=== PATIENT | male | born 1955 | race Caucasian/White ===

== ENCOUNTER 2019-09-12 12:25 | Outpatient (CLI) | payer MEDICARE, MEDICAID, SELFPAY ==
--- NOTE | 2019-09-15 16:24 | WPDHOLTEREM ---
Holter/Event Monitor Holter/Event Monitor Date of procedure: 09/12/19 Procedure Type: 24 hour holter monitor Indications: Tachycardia Conclusion: 1. 24 hour holter monitor on 09/12/19. 2. Predominant rhythm is sinus rhythm. HR range 55-138 bpm; average HR 89 bpm. 3. There are 20 premature supraventricular complexes. There is one short run of atrial tachycardia, fastest at 126 bpm lasting 5 beats. 4. There is one premature ventricular complex. No ventricular tachycardia. 5. Patient reports heart pounding which demonstrate sinus rhythm at 110 bpm.
== END 2019-09-12 12:26 | disposition home or self-care (01) ==
LOC: ANHCARD 12:27
PROVIDERS: PCP Family Medicine; Visit Provider Family Medicine
DX: R00.0 Tachycardia, unspecified (principal)
CPT/HCPCS: 93225; 93226

== ENCOUNTER 2020-11-09 16:36 | Outpatient (CLI) | payer MEDICARE, MEDICAID, SELFPAY ==
--- NOTE | ~2020-11-09 | MR_ITS ---
EXAMINATION: MR lumbar spine wo con DATE: 11/09/2020 17:19 INDICATION: Lumbar spondylosis. TECHNIQUE: Magnetic resonance imaging (MRI) of the lumbar spine was performed without intravenous con trast. Sequences included sagittal T2-weighted FSE, sagittal T2-weighted FS FSE, sagittal T1-weighted FSE, and axial T2-weighted FSE. COMPARISON: Lumbar spine MRI 01/25/2017 FINDINGS: There is mild kyphosis of lumbar spine. There is 5 mm retrolisthesis of L5 on S1. There are Schmorl's nodes at all levels. There is moderately decreased disc height at L1-L2, L2-L3, and L3-L4 and severely decreased disc height at L4-L5 and L5-S1 with endplate remodeling. The distal spinal cor d signal intensity is normal. The conus medullaris is at T12-L1. The following disc levels are specif ically discussed: L1-L2: The disc is bulging. There is mild bilateral facet joint osteoarthritis. There is moderate manuel ateral neural foraminal stenosis. There is mild central canal stenosis. L2-L3: The disc is bulging and has an annular fissure. There is moderate right and mild left facet louis int osteoarthritis. There is moderate bilateral neural foraminal stenosis. There is mild central shade l stenosis. L3-L4: There is bulging and has an annular fissure. There is mild bilateral facet joint osteoarthriti s. There is mild bilateral neural foraminal stenosis. There is mild central canal stenosis. L4-L5: Disc is bulging and has an annular fissure. There is moderate bilateral facet joint osteoarthr itis. There is moderate bilateral neural foraminal stenosis. There is mild central canal stenosis wit h posterior decompression. L5-S1: The disc is bulging and has an annular fissure. There is severe bilateral facet joint osteoart hritis. There is moderate bilateral neural foraminal stenosis. There is mild central canal stenosis w ith posterior decompression. IMPRESSION: 1. Severe lumbar spondylosis, stable from 01/25/2017. Reviewed, dictated and finalized at location A.
== END 2020-11-09 16:37 | disposition home or self-care (01) ==
PROVIDERS: PCP Family Medicine; Visit Provider Family Medicine
DX: M43.06 Spondylolysis, lumbar region (principal); M48.07 Spinal stenosis, lumbosacral region
CPT/HCPCS: 72148

== ENCOUNTER 2022-05-31 12:36 | Outpatient (CLI) | payer MEDICARE, SELFPAY ==
[2022-05-31 12:51] LABS: Hematocrit 48.4 % (40.0-54.0); Hemoglobin 16.4 g/dL (14.0-18.0); Mean Corpuscular HGB Conc 33.9 g/dL (32.0-36.0); Mean Corpuscular Hemoglobin 32.1 pg (27.0-31.0); Mean Corpuscular Volume 94.7 fL (78.0-102.0); Mean Platelet Volume 11.1 fl (8.7-11.0); Platelet Count Result 187 K/mm3 (150-420); Red Blood Count 5.11 M/mm3 (4.70-6.10); Red Cell Distribution Width 12.5 % (11.6-14.4); White Blood Count 8.3 K/mm3 (4.8-10.8)
[2022-05-31 13:26] LABS: Anion Gap 7 mmol/L (8-16); Blood Urea Nitrogen 18 mg/dL (7-18); Calcium 9.1 mg/dL (8.5-10.1); Carbon Dioxide 31 mmol/L (21-32); Chloride 106 mmol/L (98-108); Cholesterol 161 mg/dL (0-200); Estimated Glomerular Filt Rate > 60; Glucose 109 mg/dL (70-99); HDL Direct 58 mg/dL (40-60); LDL Cholesterol Calculated 86 mg/dL (<130); Osmolality Calculated 300 mOsm/kg (285-295); Prostate Specific Antigen 6.5 ng/mL (< OR = 4.0); Sodium 144 mmol/L (136-145); Thyroid Stimulating Hormone 0.37 uIU/mL (0.36-3.74); Triglycerides 84 mg/dL (0-150)
== END 2022-05-31 12:37 | disposition home or self-care (01) ==
PROVIDERS: PCP Family Medicine; Visit Provider Family Medicine
DX: I10 Essential (primary) hypertension (principal); E78.2 Mixed hyperlipidemia; Z12.5 Encounter for screening for malignant neoplasm of prostate
CPT/HCPCS: 36415; 80048; 80061; 84153; 84443; 85027; G0103

== ENCOUNTER 2022-07-18 13:59 | Outpatient (CLI) | payer MEDICARE, SELFPAY ==
--- NOTE | ~2022-07-18 | MM_ITS ---
EXAMINATION: MM diagnostic shani LT w buddy HISTORY: Unspecified lump and pain in the left breast TECHNIQUE: Craniocaudal and mediolateral oblique 3-D tomosynthesis images of the left breast and medi olateral oblique tomosynthesis view of the right breast were performed. Synthetic 2-D images were gen erated. CAD analysis was submitted and interpreted. COMPARISON: Chest CT, 07/03/2018 BREAST PARENCHYMAL COMPOSITION: There are scattered areas of fibroglandular density. FINDINGS: There is flame-shaped subareolar density in both breasts, left greater than right. No suspi cious mass, calcification, or architectural distortion are identified. IMPRESSION: 1. Findings consistent with bilateral gynecomastia, left greater than right. BI-RADS Category 2: Benign finding(s). Reviewed, dictated and finalized at location A. 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
== END 2022-07-18 14:00 | disposition home or self-care (01) ==
LOC: ANHIMG 14:01
PROVIDERS: PCP Family Medicine; Visit Provider Family Medicine
DX: N63.0 Unspecified lump in unspecified breast (principal); R92.8 Other abnormal and inconclusive findings on diagnostic imaging of breast
CPT/HCPCS: 77061; 77065; G0279

== ENCOUNTER 2023-01-23 14:35 | Outpatient (CLI) | payer MEDICARE, SELFPAY ==
--- NOTE | ~2023-01-23 | XR_ITS ---
EXAMINATION: SACRUM/COCCYX DATE: 01/23/2023 15:21 INDICATION: Tail bone pain and low back pain after fall TECHNIQUE: Three views sacrum/coccyx FINDINGS: No prior studies for comparison. There is no displaced fracture of the sacrum. The coccyx demonstrates overall normal morphology with out acute angulation. IMPRESSION: 1. No acute displaced osseous abnormality of the sacrum. Suspicion for occult or nondisplaced sacral fracture can either be evaluated with CT or MRI. 2. Grossly normal morphology to the coccyx without acute angulation. However, due to the wide range of normal variation of the coccyx, acute injury would be best evaluated by clinical examination and patient's symptoms. Reviewed, dictated and finalized at location []
== END 2023-01-23 14:36 | disposition home or self-care (01) ==
LOC: ANHIMG 14:38
PROVIDERS: PCP Family Medicine; Visit Provider Family Medicine
DX: M53.3 Sacrococcygeal disorders, not elsewhere classified (principal)
CPT/HCPCS: 72220

== ENCOUNTER 2023-05-23 15:09 | Outpatient (CLI) | payer MEDICARE, SELFPAY ==
[2023-05-23 15:25] LABS: Basophils Absolute Auto 0.08 K/mm3 (0.00-0.10); Basophils Percent Auto 1.1 % (0.0-1.0); Eosinophils Absolute Auto 0.09 K/mm3 (0.02-0.50); Eosinophils Percent Auto 1.2 % (1.0-6.0); Hematocrit 45.7 % (37.0-46.0); Immature Granulocyte Absolute 0.02 K/mm3 (0.00-0.00); Immature Granulocyte Percent A 0.3 % (0.0-0.0); Lymphocytes Percent Auto 28.6 % (18.0-42.0); Mean Corpuscular HGB Conc 32.8 g/dL (32.0-36.0); Mean Corpuscular Hemoglobin 31.5 pg (27.0-31.0); Mean Platelet Volume 11.1 fl (8.7-11.0); Monocytes Absolute Auto 0.68 K/mm3 (0.10-0.90); Monocytes Percent Auto 9.3 % (2.0-11.0); Neutrophils Absolute Auto 4.4 K/mm3 (1.7-7.2); Neutrophils Percent Auto 59.5 % (50.0-70.0); Platelet Count Result 194 K/mm3 (150-420); Red Blood Count 4.76 M/mm3 (4.70-6.10); Red Cell Distribution Width 12.9 % (11.6-14.4); White Blood Count 7.3 K/mm3 (4.8-10.8)
[2023-05-23 15:37] LABS: Prothrombin Time 11.4 Seconds (9.50-12.10)
[2023-05-23 16:08] LABS: Alanine Aminotransferase 31 U/L (16-63); Albumin Level 3.7 g/dL (3.4-5.0); Alkaline Phosphatase 90 U/L (46-116); Anion Gap 7 mmol/L (8-16); Aspartate Amino Transferase 15 U/L (15-37); Bilirubin,Total 0.3 mg/dL (0.00-1.00); Blood Urea Nitrogen 19 mg/dL (7-18); Calcium 9.2 mg/dL (8.5-10.1); Carbon Dioxide 30 mmol/L (21-32); Chloride 104 mmol/L (98-108); Estimated Glomerular Filt Rate > 60; Glucose 89 mg/dL (70-99); Iron 68 ug/dL (65-175); Osmolality Calculated 293 mOsm/kg (285-295); Percent Iron Saturation 28 % (12-57); Potassium 4.1 mmol/L (3.5-5.1); Sodium 141 mmol/L (136-145); Total Protein 6.9 g/dL (6.4-8.2)
== END 2023-05-23 15:10 | disposition home or self-care (01) ==
LOC: CHSLAB 15:10
PROVIDERS: PCP Family Medicine; Visit Provider Family Medicine
DX: R00.0 Tachycardia, unspecified (principal); K62.5 Hemorrhage of anus and rectum; K59.00 Constipation, unspecified; I10 Essential (primary) hypertension; C61 Malignant neoplasm of prostate; R10.32 Left lower quadrant pain
CPT/HCPCS: 36415; 80053; 83540; 83550; 84443; 85025; 85610

== ENCOUNTER 2023-05-24 13:02 | Outpatient (CLI) | payer MEDICARE, SELFPAY ==
--- NOTE | ~2023-05-24 | CT_ITS ---
EXAMINATION: CT abd pelvis lumbar w con DATE: 05/24/2023 13:26 INDICATION: Chronic low back pain. Chronic abdominal pain. TECHNIQUE: Computed tomography (CT) of the abdomen and pelvis and lumbar spine was performed with 100 mL Omnipaque 350 intravenous contrast. Automated exposure control and iterative reconstruction techn ique were employed. The dose-length product was 496.98 mGy-cm. COMPARISON: CT abdomen and pelvis 03/26/2018, lumbar spine MRI 11/09/2020 FINDINGS: CT ABDOMEN AND PELVIS: The visualized portions of the lung bases demonstrate mild atelectasis in the right. No pleural effusion. The heart size is normal. No pericardial effusion. There are cysts in the liver measuring up to 4.5 cm. The gallbladder, spleen, pancreas, adrenal glands, and kidneys are nor mal. Aortic atherosclerosis is noted. The prostate is mildly enlarged. There is diverticulosis of the colon without evidence of diverticulitis. There are no dilated loops of bowel. The appendix is not v isualized. There are no pathologically enlarged lymph nodes. There is no free intraperitoneal fluid. CT LUMBAR SPINE: There is 3 mm retrolisthesis of L4 on L5 and 5 mm retrolisthesis of L5 on S1. There is mild chronic anterior wedging of L1 vertebral body. There is severely decreased disc height at L1- L2, moderately decreased disc height at L2-L3 and L3-L4, and severely decreased disc height at L4-L5 and L5-S1. The following disc levels are specifically discussed: L1-L2: The disc is bulging. There is mild bilateral facet joint osteoarthritis. There is moderate manuel ateral neural foraminal stenosis. There is mild central canal stenosis. L2-L3: The disc is bulging. There is mild bilateral facet joint osteoarthritis. There is moderate manuel ateral neural foraminal stenosis. There is mild central canal stenosis. L3-L4: The disc is bulging. There is moderate right and severe left facet joint osteoarthritis. There is mild bilateral neural foraminal stenosis. There is mild central canal stenosis. L4-L5: The disc is bulging. There is severe bilateral facet joint osteoarthritis. There is moderate b ilateral neural foraminal stenosis. There is mild central canal stenosis with posterior decompression . L5-S1: The disc is bulging. There is severe bilateral facet joint osteoarthritis. There is moderate b ilateral neural foraminal stenosis. There is mild central canal stenosis with posterior decompression . IMPRESSION: 1. Severe lumbar spondylosis, stable from 11/09/2020. Reviewed, dictated and finalized at location A.
== END 2023-05-24 13:03 | disposition home or self-care (01) ==
LOC: CHSIMG 13:03
PROVIDERS: PCP Family Medicine; Visit Provider Family Medicine
DX: C61 Malignant neoplasm of prostate (principal); I10 Essential (primary) hypertension; K59.00 Constipation, unspecified; K62.5 Hemorrhage of anus and rectum; R00.0 Tachycardia, unspecified; R10.32 Left lower quadrant pain; M43.06 Spondylolysis, lumbar region
CPT/HCPCS: 72132; 74177; Q9967

== ENCOUNTER 2023-06-07 10:22 | Day surgery (SDC) | payer MEDICARE, SELFPAY ==
[2023-05-28 13:39] VITALS: BMI 23.8
[2023-06-07 12:17] VITALS: BP 176/89; PULSE 88; RESP 16; TEMP 37.1; O2SAT 96; BMI 23.8
[2023-06-07] MEDS: LACTATED RINGERS 1,000 ML 150 ML IV CONT (12:23)
--- NOTE | 2023-06-07 12:29 | WPDANESEPPF ---
Anes - Initial Pre Proc Eval Procedure: Operation Date: 06/07/23 14:00 Proposed Procedures p Colonoscopy - Todd Stanford MD Date/Time: 06/07/23 12:29 Surgeon: Todd Stanford MD Pre Op Diagnosis: Screening for malignant neoplasm of colon, Patient Data Age: 67 Gender: M Height: 1.85 m Weight: 81.8 kg Last Vital Signs Temp 37.1 C 06/07/23 12:17 Pulse 88 06/07/23 12:17 Resp 16 06/07/23 12:17 BP 176/89 H 06/07/23 12:17 Pulse Ox 96 06/07/23 12:17 O2 Del Method Room Air 06/07/23 12:17 Allergies Allergy/AdvReac Type Severity Reaction Status Date / Time aspirin Allergy Mild Nausea Verified 06/07/23 12:03 NSAIDS (Non-Steroidal Allergy Mild Nausea Verified 06/07/23 12:03 Anti-Inflamma Home Medications Medication Instructions Recorded Confirmed Type lisinopril 20 mg tablet 20 mg PO DAILY #90 tabs 07/28/22 05/28/23 Rx rosuvastatin 20 mg tablet 20 mg PO QHS #90 tabs 07/28/22 06/07/23 Rx mirabegron 25 mg tablet,extended See Rx Instructions .Route .COMPLEX 09/28/22 05/22/23 History release 24 hr (Myrbetriq) solifenacin 10 mg tablet 10 mg PO .QD 09/28/22 05/28/23 History albuterol sulfate 90 mcg/actuation 1 puff inhalation Q4H PRN 11/24/22 05/28/23 Rx aerosol inhaler (ProAir HFA) shortness of breath or wheezing #18 grams duloxetine 60 mg capsule,delayed 60 mg PO DAILY #90 caps 04/01/23 05/28/23 Rx release esomeprazole magnesium 40 mg See Rx Instructions .Route 04/24/23 05/28/23 Rx capsule,delayed release .COMPLEX #90 caps trazodone 100 mg tablet See Rx Instructions .Route 04/29/23 05/28/23 Rx .COMPLEX #270 tabs oxycodone 15 mg tablet 15 mg PO Q8H PRN LDDD #90 tabs 05/10/23 06/07/23 Rx tamsulosin 0.4 mg capsule 0.4 mg PO DAILY 05/22/23 05/28/23 History polyethylene glycol 3350 17 17 g PO DAILY #510 grams 06/07/23 Rx gram/dose oral powder (Miralax) Patient hx anesthesia problems: none Family hx anesthesia problems: none Results Review: All pre-operative results and documents have been reviewed as part of the pre-operative evaluation. [facility] Past Medical History Medical History Abnormal MRI, lumbar spine Asthma Bladder spasm BMI 24.0-24.9, adult BMI 25.0-25.9,adult BMI 26.0-26.9,adult BMI 27.0-27.9,adult BMI 28.0-28.9,adult BPH (benign prostatic hyperplasia) Breast mass in male Changing skin lesion Coccyx pain Colon cancer screening Colon, diverticulosis Colon, diverticulosis Constipation COPD (chronic obstructive pulmonary disease) Cough Degenerative lumbar disc Depression Diverticulosis Elevated PSA GERD (gastroesophageal reflux disease) Hemorrhoids Hyperlipidemia Hypertension Irregular heart beat Left lower quadrant abdominal pain Lumbar spondylolysis Mixed hyperlipidemia Nasal congestion Prostate cancer Rectal bleeding Skin lesion of chest wall Tachycardia TMJ (temporomandibular joint disorder) Tobacco dependence due to cigarettes (Unknown) Wheeze Surgical History Surgical History H/O knee surgery History of appendectomy History of back surgery History of eye surgery History of tonsillectomy Hx of prostate biopsy Family History Family History Sibling Family history of mental disorder Mother Family history of chronic obstructive pulmonary disease Father No problems noted. Other Cerebrovascular accident Diabetes mellitus Family history of allergic disorder Heart disease Hypertension Social History Social History Years smoked: 48 Smoking status: Current every day smoker Tobacco type: cigarettes Alcohol intake: former Substance use: never Substance use type: does not use Living arrangements: with family Occupation/Education: other Additional occupation/educat
--- NOTE | 2023-06-07 12:56 | PM.HPGS ---
History of Present Illness History of Present Illness Consent: Risks, benefits, and alternatives have been discussed and questions answered. Patient agrees to proceed with procedure. Chief complaint: Screening for malignant neoplasm of colon, Narrative: Avery Jurado Sr. is a 67 year old male with intermittent pain in llq, ct scan negative, also noted blood in stools. Last colonoscopy 2019 with diverticulosis and small polyp Review of Systems Constitutional: Constitutional: Denies headache(s) and Denies weakness Eyes: Eyes: Denies blurry vision ENT: Reports Normal hearing present, Denies headache(s) and Denies neck pain Cardiovascular: Cardiovascular: Denies chest pain and Denies dyspnea Respiratory: Respiratory: Denies dyspnea Gastrointestinal: Gastrointestinal: Reports no additional gastrointestinal complaints Genitourinary: Genitourinary: Denies dysuria Musculoskeletal: Musculoskeletal: Denies neck pain Integumentary/Breasts: Skin/Breast: Denies dry skin Neurologic: Reports Normal hearing present, Denies headache(s) and Denies weakness Psychiatric: Psychiatric: Denies anxiety Endocrine: Endocrine: Denies change in body appearance Hematologic/Lymphatic: Hematologic/Lymphatic: Denies easy bleeding Allergic/Immunologic: Allergic/Immunologic: Denies urticaria PMFSH Past Medical History Medical History Abnormal MRI, lumbar spine Asthma Bladder spasm BMI 24.0-24.9, adult BMI 25.0-25.9,adult BMI 26.0-26.9,adult BMI 27.0-27.9,adult BMI 28.0-28.9,adult BPH (benign prostatic hyperplasia) Breast mass in male Changing skin lesion Coccyx pain Colon cancer screening Colon, diverticulosis Colon, diverticulosis Constipation COPD (chronic obstructive pulmonary disease) Cough Degenerative lumbar disc Depression Diverticulosis Elevated PSA GERD (gastroesophageal reflux disease) Hemorrhoids Hyperlipidemia Hypertension Irregular heart beat Left lower quadrant abdominal pain Lumbar spondylolysis Mixed hyperlipidemia Nasal congestion Prostate cancer Rectal bleeding Skin lesion of chest wall Tachycardia TMJ (temporomandibular joint disorder) Tobacco dependence due to cigarettes (Unknown) Wheeze Surgical History Surgical History H/O knee surgery History of appendectomy History of back surgery History of eye surgery History of tonsillectomy Hx of prostate biopsy Family History Family History Sibling Family history of mental disorder Mother Family history of chronic obstructive pulmonary disease Father No problems noted. Other Cerebrovascular accident Diabetes mellitus Family history of allergic disorder Heart disease Hypertension Social History Social History Years smoked: 48 Smoking status: Current every day smoker Tobacco type: cigarettes Alcohol intake: former Substance use: never Substance use type: does not use Living arrangements: with family Occupation/Education: other Additional occupation/education comments: Disabled Spiritual care concerns: No Meds Home Medications and Allergies Home Medications Medication Instructions Recorded Confirmed Type lisinopril 20 mg tablet 20 mg PO DAILY #90 tabs 07/28/22 05/28/23 Rx rosuvastatin 20 mg tablet 20 mg PO QHS #90 tabs 07/28/22 06/07/23 Rx mirabegron 25 mg tablet,extended See Rx Instructions .Route .COMPLEX 09/28/22 05/22/23 History release 24 hr (Myrbetriq) solifenacin 10 mg tablet 10 mg PO .QD 09/28/22 05/28/23 History albuterol sulfate 90 mcg/actuation 1 puff inhalation Q4H PRN 11/24/22 05/28/23 Rx aerosol inhaler (ProAir HFA) shortness of breath or wheezing #18 grams duloxetine 60 mg capsule,delayed 60 mg PO DAILY #90 caps 04/01/23 05/28/23 Rx release esomeprazole dawsone
[2023-06-07 13:35] VITALS: BP 144/82; PULSE 70; RESP 16; O2SAT 99
--- NOTE | 2023-06-07 13:39 | WPDANESPN ---
Anes - Prog Note Post-Op Date/Time: 06/07/23 13:39 Cardiovascular status: normal Respiratory status: normal Airway patency: baseline Mental status: baseline Post-Op hydration status: normal Vital Signs: Last Vital Signs Temp 37.1 C 06/07/23 12:17 Pulse 88 06/07/23 12:17 Resp 16 06/07/23 12:17 BP 176/89 H 06/07/23 12:17 Pulse Ox 96 06/07/23 12:17 O2 Del Method Room Air 06/07/23 12:17 Pain Score (VAS): 0/10 I/O: Intake & Output 06/06/23 06/07/23 06/07/23 23:59 07:59 15:59 Intake Total 700 Balance 700 Patient Feedback: Patient satisfied with anesthetic care.
[2023-06-07 13:45] VITALS: BP 146/84; PULSE 68; RESP 18; O2SAT 99
[2023-06-07 13:55] VITALS: BP 146/97; PULSE 74; RESP 18; O2SAT 96
== END 2023-06-07 14:16 | disposition home or self-care (01) ==
PROVIDERS: PCP Family Medicine; Visit Provider Internal Medicine Gastroenterology
PROC: 0DJD8ZZ Inspection of Lower Intestinal Tract, Via Natural or Artificial Opening Endoscopic (ICD-10-PCS; CPT 45378; principal; 2023-06-07 14:00)
DX: K92.1 Melena (principal); D37.8 Neoplasm of uncertain behavior of other specified digestive organs; K57.30 Diverticulosis of large intestine without perforation or abscess without bleeding
CPT/HCPCS: 45385

== ENCOUNTER 2023-06-07 11:44 | Outpatient (NON) | payer MEDICARE, SELFPAY | END 2023-06-07 11:45 | disposition home or self-care (01) | LOC: ANHLAB 06-08 11:46 | PROVIDERS: PCP Family Medicine; Visit Provider Internal Medicine Gastroenterology | DX: K62.5 Hemorrhage of anus and rectum (principal); R85.613 High grade squamous intraepithelial lesion on cytologic smear of anus (HGSIL) | CPT/HCPCS: 88305 ==

== ENCOUNTER 2024-01-15 15:05 | Outpatient (CLI) | payer MEDICARE, SELFPAY ==
--- NOTE | ~2024-01-15 | XR_ITS ---
XR cervical spine min 6V 01/15/2024 15:45 Indication: Numbness. Neck pain. Procedure: 7 view cervical spine Comparison: 09/01/2008 Findings: There is disc narrowing at C4-5, C5-6 and C6-7. There is multilevel uncinate and facet hype rtrophy. Lung apices are normal. Odontoid process is normal. Lateral masses normally aligned. No frac ture or traumatic malalignment. Impression: 1: Moderate-severe cervical spondylosis. Reviewed, dictated and finalized at location B. Impression: 1: Moderate-severe cervical spondylosis.
== END 2024-01-15 15:06 | disposition home or self-care (01) ==
PROVIDERS: PCP Family Medicine; Visit Provider Family Medicine
DX: M48.02 Spinal stenosis, cervical region (principal); M43.02 Spondylolysis, cervical region
CPT/HCPCS: 72052

== ENCOUNTER 2024-01-23 10:59 | Outpatient (CLI) | payer MEDICARE, SELFPAY ==
--- NOTE | ~2024-01-23 | MR_ITS ---
MRI of the cervical spine Clinical History: Spinal stenosis Technique: Axial T2-weighted and gradient images, and sagittal T1-weighted, T2-weighted, and STIR jason ges were acquired. Findings: No fracture seen. There is minimal grade 1 retrolisthesis of C3 over C4. No suspicious bone marrow signal abnormality seen. At C2-C3, there is minimal disc osteophyte convex. There is minimal canal stenosis without alka cord compression. There is probable minimal bilateral neural foraminal narrowing with mild facet arthropa thy bilaterally. At C3-C4, there is disc osteophyte complex, most prominent at the left paracentral to left foraminal region. There is moderate canal stenosis and mild cord compression. There is severe left neural trev inal compromise. There is moderate to severe right neural foraminal compromise. At C4-C5, there is mild disc osteophyte complex. There is mild canal stenosis without alka cord comp ression. There is advanced bilateral neural foraminal narrowing with bilateral facet arthropathy. At C5-C6, there is minimal disc bulge. There is no alka canal stenosis or cord compression. There is bilateral neural foraminal narrowing, right worse than left, with bilateral facet arthropathy. At C6-C7, there is minimal disc bulge. No alka canal stenosis or cord compression. There is bilatera l neural foraminal narrowing with bilateral facet arthropathy. No abnormal signal seen in the spinal cord itself. Paravertebral soft tissues are unremarkable. Impression: Severe degenerative spondylosis, as detailed above, worst at C3-C4. Reviewed, dictated and finalized at [facility]. Impression: Severe degenerative spondylosis, as detailed above, worst at C3-C4.
== END 2024-01-23 11:00 | disposition home or self-care (01) ==
LOC: ANHIMG 10:59
PROVIDERS: PCP Family Medicine; Visit Provider Family Medicine
DX: M48.02 Spinal stenosis, cervical region (principal); M47.892 Other spondylosis, cervical region
CPT/HCPCS: 72141

== ENCOUNTER 2024-07-23 12:22 | Outpatient (CLI) | payer MEDICARE, SELFPAY ==
--- NOTE | 2024-07-23 14:30 | NEURO_ITS ---
Impression: # Complains of numbness in lower extremities/feet. ? # Neuropathy in the lower extremities. ? # Neurogenic needle/EMG exam. ? # Clinical correlation recommended. Nerve Conduction Studies Anti Sensory Summary Table ?Stim Site NR Peak (ms) P-T Amp (?V) Site1 Site2 Delta-P (ms) Dist (cm) Miguel Angel (m/s) Left Sup Fibular Anti Sensory (Ant Lat Mall) 14 cm ? 3.6 8.0 14 cm Ant Lat Mall 3.6 16.0 44 Right Sup Fibular Anti Sensory (Ant Lat Mall) 14 cm ? 4.5 13.6 14 cm Ant Lat Mall 4.5 16.0 36 Left Sural Anti Sensory (Lat Mall) Calf ? 3.9 15.1 Calf Lat Mall 3.9 16.0 41 Right Sural Anti Sensory (Lat Mall) Calf ? 4.1 10.1 Calf Lat Mall 4.1 16.0 39 Motor Summary Table ?Stim Site NR Onset (ms) O-P Amp (mV) Site1 Site2 Delta-0 (ms) Dist (cm) Miguel Angel (m/s) Left Peroneal Motor (Vastus Med) Ankle ? 4.9 4.0 Popit Ankle 11.1 44.0 40 Popit ? 16.0 1.8 Right Peroneal Motor (Vastus Med) Ankle ? 4.3 2.0 Popit Ankle 10.6 42.0 40 Popit ? 14.9 1.6 Left Tibial Motor (Abd Kerns Brev) Ankle ? 4.7 5.1 Knee Ankle 10.9 45.0 41 Knee ? 15.6 3.9 Right Tibial Motor (Abd Kerns Brev) Ankle ? 5.0 3.2 Knee Ankle 11.0 45.0 41 Knee ? 16.0 2.9 F Wave Studies ?NR F-Lat (ms) L-R F-Lat (ms) Left Peroneal (Mrkrs) (EDB) ? 59.47 0.60 Right Peroneal (Mrkrs) (EDB) ? 58.87 0.60 Left Tibial (Mrkrs) (Abd Hallucis) ? 59.63 0.43 Right Tibial (Mrkrs) (Abd Hallucis) ? 60.06 0.43 EMG ?Side Muscle Nerve Root Ins Act Fibs Amp Dur Recrt Comment Right AntTibialis Dp Br Fibular L4-5 Nml Nml Nml Nml Nml Right Gastroc Tibial S1-2 Nml Nml Nml Nml Nml Right Fibularis Long Sup Br Fibular L5-S1 Nml Nml Nml Nml Nml Right Flex Dig Long Tibial L5-S2 Nml Nml Nml >12ms +1 Right Ext Dig Brev Dp Br Fibular L5, S1 Nml Nml Nml >12ms +1 Right QuadratusFem QuadFemoris L4-5, S1 Nml Nml Nml Nml Nml Left AntTibialis Dp Br Fibular L4-5 Nml Nml Nml Nml Nml Left Gastroc Tibial S1-2 Nml Nml Nml Nml Nml Left Fibularis Long Sup Br Fibular L5-S1 Nml Nml Nml Nml Nml Left Flex Dig Long Tibial L5-S2 Nml Nml Nml >12ms +1 Left Ext Dig Brev Dp Br Fibular L5, S1 Nml Nml Nml >12ms +1 Left QuadratusFem QuadFemoris L4-5, S1 Nml Nml Nml Nml Nml MTDD
== END 2024-07-23 12:23 | disposition home or self-care (01) ==
LOC: ANHNEURO 12:25
PROVIDERS: PCP Family Medicine; Visit Provider Family Medicine
DX: R20.0 Anesthesia of skin (principal); R20.2 Paresthesia of skin; G62.9 Polyneuropathy, unspecified
CPT/HCPCS: 95886; 95910

== ENCOUNTER 2024-08-27 13:00 | Outpatient (RCR) | payer MEDICARE, MEDICAID, SELFPAY ==
--- NOTE | 2024-08-27 14:02 | OPREHPOC ---
Outpatient Therapy Plan of Care This is a Multidisciplinary Plan of Care that may contain components documented by all disciplines (PT, OT, and ST.) PT Problem 1 PT Problem #1 Knowledge Deficit PT Goal 1 Goal / Goal Update 1. independent and compliant with HEP Target Visit 6 PT Problem 2 PT Problem #2 Pain PT Goal 1 Goal / Goal Update 1. patient to report 50% or better reduction in neck and UE pain/symptoms Target Visit 12 PT Problem 3 PT Problem #3 Impaired Range of Motion PT Goal 1 Goal / Goal Update 1. 75 degrees or better bilat active rotation 2. 40 degrees or better bilat active side bending Target Visit 12 PT Problem 4 PT Problem #4 Impaired Strength PT Goal 1 Goal / Goal Update 1. improve bilateral shoulder flex and abd to 4+/5 or better 2. patient to display 4/5 or better deep neck flexor strength 3. chin tuck hold with head flat on pillow Target Visit 12 PT Problem 5 PT Problem #5 Impaired Functional Mobility PT Goal 1 Goal / Goal Update 1. patient to report 50% reduction in UE radicular symptoms 2. patient to read 1 chapter a day without increased pain/symptoms 3. NDI to display 30% or less functional deficits Target Visit 12
--- NOTE | 2024-08-27 14:02 | PTOPEVAL1 ---
Assessment and note entered by JT File, PT Evaluation Information Assessment Status Evaluation ICD-10 Condition Codes (PT) Radiculopathy, cervical M54.13 Onset 08/08/24 Subjective Information patient reports he is in therapy for neck pain. he reports he has been getting some numbness in his arms. he reports he also had a spell back in May/June when his arms went numb and stayed numb for 4-5 weeks. he reports he did have an MRI of the neck at [facility]. he reports there was some talk about fusing his neck, but he is here to try and avoid that. he reports the pain goes down both arms, but the R arm is worse. he reports the numbness goes to all fingers . he reports he as increased symptoms when looking up with his head or holding his head to the L or R. he reports he struggles to be able to get his chin to his chest. he reports he also does get headaches every day. he reports he takes oxycodone , but reports he has been taking this for his back for 7-8 years, and before that he was on tramadol and fentanyl for a long time. patient reports he would like to have less pain or no pain, less or no numbness, and be able to read a book. he reports he gets up throughout the night due to prostate cancer. he is currently receiving treatment for prostate cancer. he reports no neck surgery history and no numbness/tingling to the face Reported Pain Level Pain Score 4: Self Report Assessment PT Clinical Summary mr. adan is a 68 yo man who presents to skilled PT services for evaluation and treatment of cervical radiculopathy to the bilateral UE's, but worse to the R UE. he presents with complaints of numbness, burning, tingling to the bilateral UE's (whole hand and all fingers), inability to read a book due to his pain, and inability to sit and look up to talk to people due to pain. he displays signs and symptoms consistent with severe cervical spondylosis. he would benefit from continued skilled PT to address his objective/ functional deficits to allow him to enjoy his life with less pain/radicular symptoms, sleep better, and allow him to read a book. Plan of Care Interventions Manual Therapy,Mechanical Traction,Patient/ Caregiver Education,Therapeutic Activities, Therapeutic Exercise PT Services Indicated Yes Treatment Frequency and 3x weekly for 12 visits Duration These treatments will address the objective and functional deficits as defined above. The patient will be advanced safely and appropriately in order for the patient to progress towards his/her prior level of function. Additional exercises will be introduced and as well as a comprehensive home exercise program upon discharge, if needed, ?to ensure carryover of functional gains achieved in the clinic. This treatment plan has been reviewed and agreement upon by the patient.
--- NOTE | 2024-09-25 14:47 | PCPTNOTE ---
09/25/24: Pt cancelled appointment after note was already opened. Pt not treated. -Dara Teixeira, PT
== END 2024-11-25 23:59 | disposition home or self-care (01) ==
LOC: CHSPT 13:00
PROVIDERS: Visit Provider Neurological Surgery
DX: M54.12 Radiculopathy, cervical region (principal)
CPT/HCPCS: 97012; 97014; 97110; 97161; G0283

== ENCOUNTER 2024-10-06 14:42 | Outpatient (CLI) | payer MEDICARE, SELFPAY ==
--- NOTE | ~2024-10-06 | CT_ITS ---
EXAMINATION: CT lung screening DATE: 10/06/2024 15:39 INDICATION: former smoker TECHNIQUE: Computed tomography (CT) of the chest was performed without intravenous contrast. Addition al 3D reconstructions utilizing coronal maximum intensity projection (MIP) were performed. Automated exposure control and iterative reconstruction technique were employed. The dose-length product was 12 4.60 mGy-cm. COMPARISON: 07/03/2018 FINDINGS: Mild emphysema. A couple unchanged <4 mm nodules in the basilar left lower lobe which appears likely but not definitively calcified and which are unchanged from 06/02/2018 consistent with old granulomat ous disease. No other new or enlarging pulmonary nodules, pneumonia, pulmonary edema or pleural effus ion. Heart size is normal. Small amount of atherosclerotic coronary artery calcific location. No edgardo cardial effusion. Thoracic aorta is normal in caliber. No pathologically enlarged thoracic lymphadeno sebastien. Bilateral gynecomastia. Again seen are few low-attenuation hepatic cysts the largest in the ca udal right hepatic lobe measuring 5.2 cm in maximal diameter. Mild thoracic spondylosis with chronic mild anterior wedging at T7 and T8. IMPRESSION: 1. . Lung-RADS category 2: Benign appearance or behavior. Continue annual screening with noncontrast low-dose chest CT in 12 months. Reviewed, dictated and finalized at location B. NE BANKING SPECIALIST IMPRESSION: 1. . Lung-RADS category 2: Benign appearance or behavior. Continue annual scree sam with noncontrast low-dose chest CT in 12 months.
--- NOTE | ~2024-10-06 | XR_ITS ---
EXAMINATION: XR thoracolumbar DATE: 10/06/2024 15:39 INDICATION: Spondylolysis, lumbar region. TECHNIQUE: 2 views of the thoracolumbar spine were obtained. COMPARISON: Chest CT 10/06/2024 FINDINGS: There is 8 degrees levocurvature of thoracic spine. There is mild chronic anterior wedging of multiple vertebral bodies. There is mildly decreased disc height at multiple levels in mid thoraci c spine. There is moderately decreased disc height at L1-L2. IMPRESSION: 1. Mild thoracic spondylosis and moderate lumbar spondylosis. Reviewed, dictated and finalized at location A. TE PILOT OPERATOR
--- NOTE | 2024-10-06 14:51 | ECG_ITS ---
Test Date: 2024-10-06 15:10:01 Measurements Intervals Leonard Rate: 80 P: 81 NC: 155 QRS: 76 QRSD: 94 T: 69 QT: 357 QTc: 412 Interpretive Statements SINUS RHYTHM NORMAL ECG No previous ECG available for comparison Electronically Signed On 10-06-2024 15:14:38 GUTTER INSTALLER by Timothy Edmonds D.O.
--- OUTSIDE RECORDS SUMMARY | 2024-10-06 17:09 | XMS_ITS | Patient Health Summary ---
Author Organization [facility] Address [address] [place] [address] Care Team Providers Care Engineering Geologist Name Role Phone Bobby Shepherd MD Primary Care Provider [phone] Note from [facility],non-owned Affiliates and Associated Physician Practices is amultiple site organization consisting of ambulatory clinics and hospital sitesin [place], [place], [place] and [place]. This disclosure is being madepursuant to the Care Everywhere program and may not contain all information available regarding this patient. Last updated 18.[facility] Social History Tobacco Use Types Packs/Day Years Used Date Smoking Tobacco: Never Assessed Sex and Gender Information Value Date Recorded Sex Assigned at Not on file Gender Identity Not on file Sexual Orientation Not on file Procedures * DERMATOPATHOLOGY(Performed 09/16/2019) * DERMATOPATHOLOGY(Performed 10/16/2017) Results * DERMATOPATHOLOGY (09/16/2019 12:00 AM AUTOMATION MANAGER) Only the most recent of2 resultswithin the time period is included. Case Report Dermatopathology Report Case: [id number] Authorizing Provider: Bobby Shepherd MD Collected: 09/16/2019 12:00 AM Ordering Location: [facility] DermPath Lab Received: 09/17/2019 01:23 PM Pathologist: Phillip Godinez MD Specimen: Skin, left abdomen 0 5:01 PM AUTOMATION MANAGER DERMATOPATHOLOGY LABORATORY Final Diagnosis Specimen A. SKIN, left abdomen: BENIGN VERRUCOUS KERATOSIS WITH OVERLYING CHANGES OF PRURIGO NODULARIS (L82.1) NOT PRESENT AT SAMPLED MARGIN 0 5:01 PM [facility] DERMATOPATHOLOGY LABORATORY Clinical History Changing lesion. Check margins. 0 5:01 PM [facility] DERMATOPATHOLOGY LABORATORY Gross Description Specimen A: Received is one formalin filled container labeled with the patients name and designated left abdomen. The specimen consists of a [id number] excision of skin. The margin is inked green. The specimen is bisected lengthwise and submitted in 1 cassette. Jar 0. 0 5:01 PM [facility] DERMATOPATHOLOGY LABORATORY Microscopic Description Specimen A. SKIN, left abdomen: Sections show hyperkeratosis, papillomatosis, hypergranulosis, and acanthosis. These histological findings can be seen in a verruca vulgaris or a seborrheic keratosis. There is a dome-shaped portion of skin with psoriasiform epidermal hyperplasia, compact hyperkeratosis, and fibrosis of the papillary dermis associated with a superficial perivascular lymphohistiocytic infiltrate. This lesion is not present at the sampled margin of the specimen. 0 5:01 PM [facility] DERMATOPATHOLOGY LABORATORY Disclaimer An external and internal positive and negative controls are appropriate for the histochemical, immunohistochemical and immunofluorescence stain(s) in this case (if any), except where stated explicitly. The performance characteristics of the stain(s) cited in this report were developed and its performance characteristic determined by the Dermatopathology Laboratory at [facility], directed by Dr. Sarah Godinez. These tests need not be, and therefore are not, approved by the [place] Food and Drug Administration. The tests are used for clinical purposes. Billing Codes Specimen Charges Stain Charges 63392 1 0 5:01 PM [facility] DERMATOPATHOLOGY LABORATORY Embedded Images 0 5:01 PM [facility] DERMATOPATHOLOGY LABORATORY Pathology/Cytolog y TISSUE SPECIMEN FROM SKIN / Unknown 09/16/2019 09/17/2019 1:23 PM [facility] Bobby Shepherd MD LAB - PATHOLOGY/CYTO LOGY ORDERABLES DERMATOPATHOLOGY LABORATORY [facility] - Department of Dermatology [address] Lab [address] [phone] Care Teams Engineering Geologist Relationship Specialty Start Date End Date Bobby Shepherd MD [address] [place] [address] PCP - General 09/17/19
--- OUTSIDE RECORDS SUMMARY | 2024-10-06 17:09 | XMS_ITS | Referral Summary ---
Author Organization [facility] Address [address] [place] [address] Care Team Providers Care Solution Mixer Name Role Phone Bobby Shepherd MD Primary Care Provider [phone] Kwabena Yost MD Unavailable [phone] Jesus Roque MD Unavailable [phone] Allergies Active Allergy Reactions Criticality Noted Date Comments Aspirin Stomach upset Low 06/26/2023 Medications oxyCODONE (ROXICODONE) 15 mg immediate release tabletIndications :Pain Take 1 tablet (15 mg total) by mouth 3 (three) times a day 3 Active albuterol HFA (PROVENTIL HFA,VENTOLIN HFA,PROAIR HFA) 90 mcg/actuation inhalerIndication s:Acute Asthma Attack Inhale 2 puffs every 6 (six) hours as needed 3 Active lisinopriL (PRINIVIL,ZESTRIL ) 20 mg tabletIndications :hypertension Take 1 tablet (20 mg total) by mouth every morning Active rosuvastatin (CRESTOR) 20 mg tabletIndications :hyperlipidemia Take 1 tablet (20 mg total) by mouth nightly Active esomeprazole DR (NexIUM) 40 mg capsuleIndication s:gerd Take 1 capsule (40 mg total) by mouth daily before breakfast Active DULoxetine DR (CYMBALTA) 60 mg capsuleIndication s:Anxiety with Depression Take 1 capsule (60 mg total) by mouth every morning 3 Active traZODone (DESYREL) 100 mg tabletIndications :insomnia associated with depression Take 1 tablet (100 mg total) by mouth nightly Active Myrbetriq 50 mg tablet extended release 24 hrIndications:Krishan dder Hyperactivity Take 1 tablet (50 mg total) by mouth nightly at bedtime. 3 Active solifenacin (VESIcare) 10 mg tabletIndications :Bladder Hyperactivity Take 1 tablet (10 mg total) by mouth nightly Active tamsulosin (FLOMAX) 0.4 mg extended release capsuleIndication s:benign prostatic hyperplasia with lower urinary tract sx Take 1 capsule (0.4 mg total) by mouth nightly Active senna (SENOKOT) 8.6 mg tabletIndications :constipation Take 1 tablet by mouth every morning Active iron bisgly,ps-FA-B-C# 12-succ 65 mg-65 mg -1,000 mcg (24) tabletIndications :Folate Deficiency Take 1 tablet by mouth every morning Active sodium chloride 3 % mistIndications:D ry Nose,Nasal Congestion Administer 1 spray into affected nostril(s) every morning Active oxyCODONE (ROXICODONE) 5 mg immediate release tabletIndications :Pain Take 1 tablet (5 mg total) by mouth every 4 (four) hours as needed for pain for up to 5 doses 5 tablet 3 Active Additional Information Patient not taking.Reported on 08/21/2023 Active Problems Problem Noted Date Diagnosed Date Chronic idiopathic constipation 11/27/2023 AIN III (anal intraepithelial neoplasia III) Social History Tobacco Use Types Packs/Day Years Used Date Smoking Tobacco: Every Day Cigarettes 0.8 50.1 Started: 1972 Smokeless Tobacco: Never Tobacco Cessation:Ready to Q uit: Not Asked; Counseling Given: Not Answered AUDIT-C Answer Date Recorded Q1: How often do you have a drink containing alc ohol? Never 07/27/2023 Average Number of Drinks Not on file 023 Frequency of Binge Drinking Not on file 07/13 Personal Safety Answer Date Recorded Have you ever been in or are you currently in a harmful physical or emotional relationship or is someone making you feel afraid or unsafe? Denies 07/27/2023 Sex and Gender Information Value Date Recorded Sex Assigned at Not on file Legal Sex Male 8:06 PM WHEEL AND AXLE INSPECTOR Gender Identity Male 06/19/2023 9:21 AM WHEEL AND AXLE INSPECTOR Sexual Orientation Straight 06/19/2023 9: 21 AM WHEEL AND AXLE INSPECTOR Last Filed Vital Signs Vital Sign Reading Time Taken Comments Blood Pressure 155/81 04/29/2024 10:47 AM CDT Pulse 85 04/29/2024 10:47 AM CDT Temperature 36.1 C (96.9 F) 04/29/2024 10:47 AM CDT Respiratory Rate 15 07/27/2023 8:05 AM WHEEL AND AXLE INSPECTOR Oxygen Saturation 92% 04/29/2024 10:47 AM CDT Inhaled Oxygen Concentration - - Weight 83.9 kg (185 lb) 04/29/2024 10:47 AM CDT Height 182.9 cm (6') 04/29/2024 10:47 AM CDT Body Mass Index 25.09 04/29/2024 10:47 AM CDT Plan of Treatment Not on file Medical Devices Implanted Type Area Printed Circuit Board Designer Device Identifier Shelf Expiration Date Model / Serial / Lot Rt Wrist Pins Wrist Rt Hand Pins Hand Insurance MEDICARE [facility] Address: [address] [address] [place] [address] [employer]ICARE [facility] Address: [facility] [address] [place] [address] Care Teams Solution Mixer Relationship Specialty Start Date End Date Bobby Shepherd MD PCP - General Family Medicine 06/08/23 Kwabena Yost MD [address] [facility] [address] [place] [address] Referring Physician Gastroenterology 06/26/23 Jesus Roque MD [address] [facility] [id number] [place] [address] Surgeon Colon and Rectal Surgery 06/26/23
--- OUTSIDE RECORDS SUMMARY | 2024-10-06 17:09 | XMS_ITS | Clinical Summary ---
Author Organization [facility] Address [address] [place] [address] Care Team Providers Care Laundry Machine Tender Name Role Phone Bobby Shepherd MD Primary Care Provider [phone] Kwabena Yost MD Unavailable [phone] Jesus Roque MD Unavailable [phone] Allergies Active Allergy Reactions Criticality Noted Date [...] 11/27/2023 AIN III (anal intraepithelial neoplasia III) Surgical History Surgery Date Site/Laterality Comments BACK SURGERY APPENDECTOMY 08/13/1995 - 08/12/1996 WRIST SURGERY Right pins placed KNEE SURGERY Left arthroscopy HAND SURGERY Right fracture...pins in place COLONOSCOPY EXAMINATION UNDER ANESTHESIA 07/27/2023 Examination under anesthesia with excision of anal condyloma Medical History Medical History Date Comments Hypertension COPD (chronic obstructive pulmonary disease) (HC C) Diverticulitis Prostate cancer (HCC) GERD (gastroesophageal reflux disease) Family History Medical History Relation Name Comments Lung cancer Father COPD Mother Anesthesia problems Neg Hx Relation Name Status Comments Father Mother Social History Tobacco Use Types Packs/Day Years [...] on file Legal Sex Male 8:06 PM WHITE WASHER PILER Gender Identity Male 06/19/2023 9:21 AM WHITE WASHER PILER Sexual Orientation Straight 06/19/2023 9: 21 AM WHITE WASHER PILER Obstetrics History Last Filed Vital Signs Vital Sign Reading Time Taken Comments Blood Pressure 155/81 04/29/2024 10:47 AM CDT Pulse 85 04/29/2024 10:47 AM CDT Temperature 36.1 C (96.9 F) 04/29/2024 10:47 AM CDT Respiratory Rate 15 07/27/2023 8:05 AM WHITE WASHER PILER Oxygen Saturation 92% 04/29/2024 10:47 AM CDT Inhaled Oxygen Concentration - - Weight 83.9 kg (185 lb) 04/29/2024 10:47 AM CDT Height 182.9 cm (6') 04/29/2024 10:47 AM CDT Body Mass Index 25.09 04/29/2024 10:47 AM CDT Plan of Treatment Health Maintenance Due Date Last Done Comments Colon Cancer Screening-Colonoscopy 1957 Depression Screening 1957 Hepatitis C Screening 1957 Prostate Cancer Screening-PSA 1957 DTaP/Tdap/Td Vaccine (1 - Tdap) 1968 Hepatitis B Screening 12/31/1975 Pneumococcal vaccine 65+ (1 of 2 - PCV) 1976 Lung Cancer Screening 12/31/2007 Zoster Vaccine (1 of 2) 12/31/2007 Abdominal Aortic Aneurysm (AAA) Screen 2022 Well Visit 65+ 2022 Influenza Vaccine (#1) 2024 Fall Risk Assessment 07/27/2024 07/27/2023 Medical Devices Implanted Type Area Cookie Breaker Device Identifier Shelf Expiration Date Model / Serial / Lot Rt Wrist Pins Wrist Rt Hand Pins Hand Insurance MEDICARE Lot18 [facility] MEDIC[facility] Address: [address] [address] [place] [address] MEDICARE [employer] [facility] Address: [address] [address] [place] [address] Care Teams Laundry Machine Tender Relationship Specialty Start Date End Date Bobby Shepherd MD PCP - General Family Medicine 06/08/23 Kwabena Yost MD [address] [facility] [address] [facility] [address] [place] [address] Referring Physician Gastroenterology 06/26/23 Jesus Roque MD [address] [facility] [phone] [place] [address] Surgeon Colon and Rectal Surgery 06/26/23
--- OUTSIDE RECORDS SUMMARY | 2024-10-06 17:09 | XMS_ITS | Continuity of Care Document ---
Author Organization [facility] Address [address] [place] [address] Phone Care Team Providers Care Fitter Tacker Name Role Phone Chi Mas Unavailable Unavailable [...] Diagnoses Date Provider Providers Copied on Encounter [facility], [address], [place], [place], [id number], [place] tel:[phone] [facility] No Information [address] [place], [address], [place]. tel:[phone] [facility], [address], [place], [place], [id number], [place] tel:[phone] [facility] No Information Aug-2 5-[address] [place], [address], [place]. tel:[phone] [facility], [address], [place], [place], [id number], [place] tel:[phone] [facility] No Information Janak-3 0-[address] [place], [address], [place]. tel:[phone] [facility], [address], [place], [place], [id number], [place] tel:[phone] [facility] No Information Janak-1 6-[address] [place], [place], [facility], [place]. tel:[phone] [facility], [address], [place], [place], [address], [place] tel:[phone] [facility] No Information Janak-1 2-[address] [place], [facility], [place]. tel:[phone] [facility], [address], [place], [place], [address], [place] tel:[phone] [facility] No Information Janak-0 5-[address] [place], [address], [place]. tel:[phone] Referring Provider: Chi Leija, [address] [place], [address]. tel:[phone] [facility], [address], [place], [place], [address], [place] tel:[phone] [facility] [place] No Information Janak-0 3-200 8 Ita [address]ou. [address], [place], [place], [facility], [place]. tel:[phone] [facility], [address], [place], [place], [address], [place] tel:[phone] [facility] No Information Oct-200 [address] [place], [facility], [place]. tel:[phone] [facility], [address], [place], [place], [address], [place] tel:[phone] [facility] No Information [address] [place], [facility], [place]. tel:[phone] Referring Provider: Chi Leija, [address] [place], [place], [facility]. tel:[phone] Office Consultation [facility], [address], [place], [place], [address], [place] tel:[phone] [facility] No Information Jun-2 [address] [place], [facility], [place]. tel:[phone] Referring Provider: Peyman Roland OD A, [address], [place], [place], [facility]. tel:[phone] [facility], [address], [place], [place], [address], [place] tel:[phone] [facility] No Information Nov-2 9-200 7 Roland OD Peyman. [address], [place], [facility], [place]. tel:[phone] Family History Family Member Type Diagnosis Age At Onset No Information Payers Payer name Insurance type Covered republican ID Authoriza tion(s) Medicare [facility] [id number] Medicaid [facility] [id number] Social History Type Description Quantity Date Captured [...]
--- OUTSIDE RECORDS SUMMARY | 2024-10-06 17:09 | XMS_ITS | Clinical Summary ---
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
--- OUTSIDE RECORDS SUMMARY | 2024-10-06 17:09 | XMS_ITS | Referral Summary ---
Author Organization [facility] Address [address] [place] [address] Care Team Providers Care Geriatric Physician Name Role Phone Bobby Shepherd MD Primary Care Provider [phone] Source Comments [facility] [employer],non-owned Affiliates and Associated Physician Practices is amultiple site organization consisting of ambulatory clinics and hospital sitesin [place], [place], [place] and [place]. This disclosure is being madepursuant to the Care Everywhere program and may not contain all information available regarding this patient. Last updated 18.[facility] [employer] Social History Tobacco Use Types Packs/Day Years Used Date Smoking Tobacco: Never Assessed Sex and Gender Information Value Date Recorded Sex Assigned at Not on file Gender Identity Not on file Sexual Orientation Not on file Plan of Treatment Not on file Care Teams Geriatric Physician Relationship Specialty Start Date End Date Bobby Shepherd MD [address] [place] [id number] [facility] - General 09/17/19
--- OUTSIDE RECORDS SUMMARY | 2024-10-06 17:09 | XMS_ITS | Clinical Summary ---
Author Organization [facility] Address [address] [place] [address] Care Team Providers Care Second Crusher Name Role Phone Bobby Shepherd MD Primary Care Provider [phone] Social History Tobacco Use Types Packs/Day Years Used Date Smoking Tobacco: Never Assessed Sex and Gender Information Value Date Recorded Sex Assigned at Not on file Legal Sex Male 3:40 PM CDT Gender Identity Not on file Sexual Orientation Not on file Plan of Treatment Health Maintenance Due Date Last Done Comments Colorectal Cancer Screening Colonoscopy (10 Years) 1957 Hepatitis C 12/31/1975 DTaP, Tdap and Td Vaccines ( 1 - Tdap) 1976 Zoster Vaccines (1 of 2) 12/31/2007 Annual Medicare Wellness Visit 2022 Pneumococcal Vaccine: 65+ Ye ars (1 of 1 - PCV) 2022 COVID-19 Vaccine ( - 2023-2 5 season) 2024 Influenza Adult (#1) 2024 RSV Immunization or 60+ Years (1 - 1-dose 75+ series) 2032 Meningococcal B Vaccine Aged Out No l onger eligible based on patient's age to complete this topic Meningococcal Vaccine Aged Out No meghann leonides eligible based on patient's age to complete this topic RSV Immunizations Under 20 Months Aged Out No longer eligible based on patient's age to complete this topic Insurance MEDICARE Care Teams Second Crusher Relationship Specialty Start Date End Date Bobby Shepherd MD [address] [place], [place] [id number] PCP - General FAMILY PRACTICE 04/11/21
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
--- OUTSIDE RECORDS SUMMARY | 2024-10-06 17:09 | XMS_ITS | Encounter Summary ---
Author Organization [facility] Address [address] [place] [address] Care Team Providers Care Regional Account Manager Name Role Phone Bobby Shepherd MD Primary Care Provider [phone] Encounter Details Date Type Department Care Team (Late st Contact Info) Description 09/17/2019 Lab Requisition [facility] [address] [place] [id number] Bobby Shepherd MD [address] [place] [address] Social History Tobacco Use Types Packs/Day Years Used Date Smoking Tobacco: Never Assessed Sex and Gender Information Value Date Recorded Sex Assigned at Not on file Gender Identity Not on file Sexual Orientation Not on file documented as of this encounter Plan of Treatment Not on file documented as of this encounter Procedures Procedure Name Priority Date/Time Associated Diagnosis Comments DERMATOPATHOLOGY Routine 09/16/2019 12:0 0 AM CARDIOVASCULAR SONOGRAPHER documented in this encounter Results * DERMATOPATHOLOGY (09/16/2019 12:00 AM CARDIOVASCULAR SONOGRAPHER) Case Report Dermatopathology Report Case: [id number] Authorizing Provider: Bobby Shepherd MD Collected: 09/16/2019 12:00 AM Ordering Location: [facility] Received: 09/17/2019 01:23 PM Pathologist: Phillip Godinez MD Specimen: Skin, left abdomen 0 5:01 PM CARDIOVASCULAR SONOGRAPHER DERMATOPATHOLOGY LABORATORY Final Diagnosis Specimen A. SKIN, left abdomen: BENIGN VERRUCOUS KERATOSIS WITH OVERLYING CHANGES OF PRURIGO NODULARIS (L82.1) NOT PRESENT AT SAMPLED MARGIN 0 5:01 PM CARDIOVASCULAR SONOGRAPHER DERMATOPATHOLOGY LABORATORY Clinical History Changing lesion. Check margins. 0 5:[address] [facility] DERMATOPATHOLOGY LABORATORY Gross Description Specimen A: Received is one formalin filled container labeled with the patients name and designated left abdomen. The specimen consists of a [id number] excision of skin. The margin is inked green. The specimen is bisected lengthwise and submitted in 1 cassette. Jar 0. 0 5:[address] [facility] DERMATOPATHOLOGY LABORATORY Microscopic Description Specimen [...] margin of the specimen. 0 5:[address] [facility] DERMATOPATHOLOGY LABORATORY Disclaimer An external and internal positive and negative controls are appropriate for the histochemical, immunohistochemical and immunofluorescence stain(s) in this case (if any), except where stated explicitly. The performance characteristics of the stain(s) cited in this report were developed and its performance characteristic determined by the Dermatopathology Laboratory at [facility], directed by Dr. Sarah Godinez. These tests need not be, and therefore are not, approved by the [place] Food and Drug Administration. The tests are used for clinical purposes. Billing Codes Specimen Charges Stain Charges 72693 1 0 5:[address] [facility] DERMATOPATHOLOGY LABORATORY Embedded Images 0 5:[address] [facility] DERMATOPATHOLOGY LABORATORY Pathology/Cytolog y TISSUE SPECIMEN FROM SKIN / Unknown 09/16/2019 09/17/2019 1:[address] [facility] Bobby Shepherd MD LAB - PATHOLOGY/CYTO LOGY ORDERABLES DERMATOPATHOLOGY LABORATORY [facility] - Department of Dermatology [address] [place] [address], 5th Floor Lab [address] [phone] documented in this encounter Visit Diagnoses Not on filedocumented in this encounter Care Teams Regional Account Manager Relationship Specialty Start Date End Date Bobby Shepherd MD [address] [facility] [address] PCP - General 09/17/19 documented as of this encounter
--- OUTSIDE RECORDS SUMMARY | 2024-10-06 17:09 | XMS_ITS | Clinical Summary ---
Author Organization [facility] Address [address] [place] [address] Care Team Providers Care Director Reactor Projects Name Role Phone Bobby Shepherd MD Primary Care Provider [phone] Source Comments [facility] [employer],non-owned Affiliates and Associated Physician Practices is amultiple site organization consisting of ambulatory clinics and hospital sitesin [place], [place], [place] and [place]. This disclosure is being madepursuant to the Care Everywhere program and may not contain all information available regarding this patient. Last updated 18.[facility] [employer] Social History Tobacco Use Types Packs/Day Years Used Date Smoking Tobacco: Never Assessed Sex and Gender Information Value Date Recorded Sex Assigned at Not on file Gender Identity Not on file Sexual Orientation Not on file Plan of Treatment Health Maintenance Due Date Last Done Comments COLOGUARD (AGES 45-75) - COL ON CA SCREENING 1957 COLON MONITORING 1957 COLONOSCOPY - COLON CA SCREENING 1957 CT COLONOGRAPHY - COLON CA SCREENING 1957 Colorectal Cancer Screening 1957 FIT - COLON CA SCREENING 1957 FLEX SIG - COLON CA SCREENING 1957 LIPID TESTING 1957 HEPATITIS C SCREENING 12/26/1975 DTAP/TDAP/TD VACCINES (1 - Tdap) 1976 PNEUMOCOCCAL VACCINE 50+ (1 of 1 - PCV) 12/31/2007 ZOSTER VACCINE (1 of 2) 12/31/2007 COVID-19 VACCINE ( - 2023-2 5 season) 2024 INFLUENZA VACCINE (#1) 2024 DEPRESSION SCREENING 08/13/2024 MEDICARE AWV CALENDAR YEAR 2024 Respiratory Syncytial Virus (RSV) Vaccine Pt: or over 60 yrs (1 - 1-dose 75+ series) 2032 HEPATITIS B VACCINE Aged Out No longe r eligible based on patient's age to complete this topic HIB VACCINE Aged Out No longer eligi ble based on patient's age to complete this topic HPV VACCINE Aged Out No longer eligi ble based on patient's age to complete this topic MENINGOCOCCAL (Group B) VACCINE Aged Out No longer eligible based on patient's age to complete this topic MENINGOCOCCAL VACCINE Aged Out No meghann leonides eligible based on patient's age to complete this topic Care Teams Director Reactor Projects Relationship Specialty Start Date End Date Bobby Shepherd MD [address] [place] [address] PCP - General 09/17/19
== END 2024-10-06 14:43 | disposition home or self-care (01) ==
PROVIDERS: PCP Family Medicine
DX: I49.9 Cardiac arrhythmia, unspecified (principal); J43.9 Emphysema, unspecified; M43.06 Spondylolysis, lumbar region; M54.9 Dorsalgia, unspecified; Z87.891 Personal history of nicotine dependence
CPT/HCPCS: 71271; 72080; 93005

== ENCOUNTER 2024-10-10 14:00 | Outpatient (CLI) | payer MEDICARE, SELFPAY ==
[2024-10-10 14:19] LABS: Basophils Absolute Auto 0.04 K/mm3 (0.00-0.10); Basophils Percent Auto 0.7 % (0.0-1.0); Eosinophils Absolute Auto 0.12 K/mm3 (0.02-0.50); Eosinophils Percent Auto 2.1 % (1.0-6.0); Hematocrit 46.9 % (37.0-46.0); Hemoglobin 15.5 g/dL (12.4-15.3); Immature Granulocyte Absolute 0.02 K/mm3 (0.00-0.00); Immature Granulocyte Percent A 0.4 % (0.0-0.0); Lymphocytes Absolute Auto 1.82 K/mm3 (1.10-4.50); Lymphocytes Percent Auto 31.9 % (18.0-42.0); Mean Corpuscular Hemoglobin 31.6 pg (27.0-31.0); Mean Corpuscular Volume 95.7 fL (78.0-102.0); Mean Platelet Volume 10.8 fl (8.7-11.0); Monocytes Absolute Auto 0.65 K/mm3 (0.10-0.90); Monocytes Percent Auto 11.4 % (2.0-11.0); Neutrophils Absolute Auto 3.06 K/mm3 (1.70-7.20); Neutrophils Percent Auto 53.5 % (50.0-70.0); Platelet Count Result 186 K/mm3 (150-420); Red Cell Distribution Width 12.6 % (11.6-14.4); White Blood Count 5.7 K/mm3 (4.8-10.8)
[2024-10-10 15:05] LABS: Alanine Aminotransferase 59 U/L (16-63); Albumin Level 3.7 g/dL (3.4-5.0); Alkaline Phosphatase 104 U/L (46-116); Anion Gap 12 mmol/L (4-12); Aspartate Amino Transferase 32 U/L (15-37); Bilirubin,Total 0.3 mg/dL (0.00-1.00); Blood Urea Nitrogen 27 mg/dL (7-18); Carbon Dioxide 26 mmol/L (21-32); Chloride 104 mmol/L (98-108); Cholesterol 129 mg/dL (0-200); Estimated Glomerular Filt Rate 50; Glucose 123 mg/dL (70-99); HDL Direct 53 mg/dL (40-60); LDL Cholesterol Calculated 54 mg/dL (<130); Osmolality Calculated 300 mOsm/kg (285-295); Potassium 3.8 mmol/L (3.5-5.1); Sodium 142 mmol/L (136-145); Total Protein 6.9 g/dL (6.4-8.2); Triglycerides 108 mg/dL (0-150)
== END 2024-10-10 14:01 | disposition home or self-care (01) ==
PROVIDERS: PCP Family Medicine
DX: I10 Essential (primary) hypertension (principal); E78.2 Mixed hyperlipidemia; K14.3 Hypertrophy of tongue papillae; J43.9 Emphysema, unspecified
CPT/HCPCS: 36415; 80053; 80061; 85025

== ENCOUNTER 2024-10-23 12:46 | Outpatient (CLI) | payer MEDICARE, SELFPAY ==
--- OUTSIDE RECORDS SUMMARY | 2024-10-23 14:11 | XMS_ITS | Encounter Summary ---
Author Organization [facility] Address [address] [place] [address] Care Team Providers Care Survey Field Technician Name Role Phone Bobby Shepherd MD Primary Care Provider [phone] Encounter Details Date Type Department Care Team (Late st Contact Info) Description 09/17/2019 Lab Requisition [facility] [address] [place] [id number] Bobby Shepherd MD [address] [place] [address] Social History Tobacco Use Types [...] Comments DERMATOPATHOLOGY Routine 09/16/2019 12:0 0 AM ACCOUNTING/FINANCE TUTOR documented in this encounter Results * DERMATOPATHOLOGY (09/16/2019 12:00 AM ACCOUNTING/FINANCE TUTOR) Case Report Dermatopathology Report Case: [id number] Authorizing Provider: Bobby Shepherd MD Collected: 09/16/2019 12:00 AM Ordering Location: [facility] Received: 09/17/2019 01:23 PM Pathologist: Phillip Godinez MD Specimen: Skin, left abdomen 0 5:01 PM ACCOUNTING/FINANCE TUTOR DERMATOPATHOLOGY LABORATORY Final Diagnosis Specimen A. SKIN, left abdomen: BENIGN VERRUCOUS KERATOSIS WITH OVERLYING CHANGES OF PRURIGO NODULARIS (L82.1) NOT PRESENT AT SAMPLED MARGIN 0 5:01 PM ACCOUNTING/FINANCE TUTOR DERMATOPATHOLOGY LABORATORY Clinical History Changing lesion. Check margins. 0 5:01 PM [facility] DERMAT[facility]ORATORY Gross Description Specimen A: Received is one formalin filled container labeled with the patients name and designated left abdomen. The specimen consists of a [id number] excision of skin. The margin is inked green. The specimen is bisected lengthwise and submitted in 1 cassette. Jar 0. 0 5:01 PM [facility] DERMATOPATHOLOGY [facility]ORATORY Microscopic Description Specimen A. SKIN, [...] margin of the specimen. 0 5:01 PM [facility] DERMATOPATHOLOGY [facility]ORATORY Disclaimer An external and internal positive and negative controls are appropriate for the histochemical, immunohistochemical and immunofluorescence stain(s) in this case (if any), except where stated explicitly. The performance characteristics of the stain(s) cited in this report were developed and its performance characteristic determined by the Dermatopathology Laboratory at [facility], directed by Dr. Sarah Godinez. These tests need not be, and therefore are not, approved by the [place] Food and Drug Administration. The tests are used for clinical purposes. Billing Codes Specimen Charges Stain Charges 04888 1 0 5:01 PM [facility] DERMATOPATHOLOGY LABORATORY Embedded Images 0 5:01 PM [facility] DERMATOPATH[facility]Y [facility]ORY Pathology/Cytolog y TISSUE SPECIMEN FROM SKIN / Unknown 09/16/2019 09/17/2019 1:23 PM [facility] Bobby Shepherd MD LAB - PATHOLOGY/CYTO LOGY ORDERABLES DERMATOPATHOLOGY LABORATORY [facility] - Department of Dermatology [address] [place] [address], 5th Floor Lab [address] [phone] documented in this encounter Visit Diagnoses Not on filedocumented in this encounter Care Teams Survey Field Technician Relationship Specialty Start Date End Date Bobby Shepherd MD [address] [facility] [place] [address] PCP - General 09/17/19 documented as of this encounter
--- OUTSIDE RECORDS SUMMARY | 2024-10-23 14:11 | XMS_ITS | Referral Summary ---
Author Organization [facility] Address [address] [place] [address] Care Team Providers Care Operating Room Scheduler Name Role Phone Bobby Shepherd MD Primary Care Provider [phone] Source Comments [facility] [employer],non-owned Affiliates and Associated Physician Practices is amultiple site organization consisting of ambulatory clinics and hospital sitesin [place], [place], [place] and [place]. This disclosure is being madepursuant to the Care Everywhere program and may not contain all information available regarding this patient. Last updated 18.[facility] [employer] Social History Tobacco Use Types Packs/Day Years Used Date Smoking Tobacco: Never Assessed Sex and Gender Information Value Date Recorded Sex Assigned at Not on file Gender Identity Not on file Sexual Orientation Not on file Plan of Treatment Not on file Care Teams Operating Room Scheduler Relationship Specialty Start Date End Date Bobby Shepherd MD [address] [place] [id number] [facility] - General 09/17/19
--- OUTSIDE RECORDS SUMMARY | 2024-10-23 14:11 | XMS_ITS | Clinical Summary ---
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 Gender Identity Male 06/19/2023 9:21 AM TURRET PRESS OPERATOR Sexual Orientation Straight 06/19/2023 9: 21 AM TURRET PRESS OPERATOR Obstetrics History Last Filed Vital Signs Vital Sign Reading Time Taken Comments Blood Pressure 155/81 04/29/2024 10:47 AM CDT Pulse 85 04/29/2024 10:47 AM CDT Temperature 36.1 C (96.9 F) 04/29/2024 10:47 AM CDT Respiratory Rate 15 07/27/2023 8:05 AM TURRET PRESS OPERATOR Oxygen Saturation 92% 04/29/2024 10:47 AM CDT [...] 07/27/2024 07/27/2023 Medical Devices Implanted Type Area Shearing Shed Hand Device Identifier Shelf Expiration Date Model / Serial / Lot Rt Wrist Pins Wrist Rt Hand Pins Hand Insurance MEDICARE [employer] MEDICARE SOLUTIONS Care Teams [employer]ision Lens Centerer And Edger Relationship Specialty Start Date End Date Bobby Shepherd MD PCP - General Family Medicine 06/08/23 Kwabena Yost MD [address] [facility] [address] [facility] [address] [place] [address] Referring Physician Gastroenterology 06/26/23 Jesus Roque MD [address] [facility] [phone] [place] [address] Surgeon Colon and Rectal Surgery 06/26/23
--- OUTSIDE RECORDS SUMMARY | 2024-10-23 14:11 | XMS_ITS | Continuity of Care Document ---
Author Organization formerly [facility] Address [address] [place] [address] Phone Care Team Providers Care Cat Wagon Operator Name Role Phone Chi Mas Unavailable Unavailable [...] Diagnoses Date Provider Providers Copied on Encounter [facility], [address], [place], [place], [id number], [place] tel:[phone] [facility] No Information [address] [place], [address], [place]. tel:[phone] [facility] [place], [address], [place], [place], [id number], [place] tel:[phone] [facility] No Information Aug-2 5-[address] [place], [address], [place]. tel:[phone] [facility], [address], [place], [place], [id number], [place] tel:[phone] [facility] No Information Janak-3 0-[address] [place], [address], [place]. tel:[phone] [facility], [address], [place], [place], [address], [place] tel:[phone] [facility] No Information Janak-1 6-200 [address] [place], [place], [facility], [place]. tel:[phone] [facility], [address], [place], [place], [address], [place] tel:[phone] [facility] No Information Janak-1 2-200 [address] [place], [place], [facility], [place]. tel:[phone] [facility], [address], [place], [place], [id number], [place] tel:[phone] [facility] No Information Janak-0 5-[address] [place], [address], [place]. tel:[phone] Referring Provider: Chi Leija, [address] [place], [address]. tel:[phone] [facility], [address], [place], [place], [id number], [place] tel:[phone] [facility] [place] No Information Janak-0 3-200 8 Ita Ch[address]. [address], [place], [place], [facility], [place]. tel:[phone] [facility], [address], [place], [place], [id number], [place] tel:[phone] [facility] No Information Oct-200 [address] [place], [place], [facility], [place]. tel:[phone] [facility], [address], [place], [place], [address], [place] tel:[phone] [facility] No Information [address] [place], [place], [facility], [place]. tel:[phone] Referring Provider: Chi Leija, [address] [place], [place], [facility]. tel:[phone] Office Consultation [facility], [address], [place], [place], [id number], [place] tel:[phone] [facility] No Information Jun-2 [address] [place], [place], [facility], [place]. tel:[phone] Referring Provider: Peyman Roland OD A, [address], [place], [place], [facility]. tel:[phone] [facility], [address], [place], [place], [id number], [place] tel:[phone] [facility] No Information Nov-2 9-200 7 Roland OD Peyman. [address], [place], [place], [facility], [place]. tel:[phone] Family History Family Member Type Diagnosis Age At Onset No Information Payers Payer name Insurance type Covered green party ID Authoriza tion(s) Medicare [facility] [id number] Medicaid [facility] [id number] Social History Type Description Quantity Date Captured [...]
--- OUTSIDE RECORDS SUMMARY | 2024-10-23 14:11 | XMS_ITS | Clinical Summary ---
Author Organization [facility] [employer] Address [address] [place] [address] Care Team Providers Care Secondary Spanish Teacher Name Role Phone Bobby Shepherd MD Primary Care Provider [phone] Source Comments [facility] [employer],non-owned Affiliates and Associated Physician Practices is amultiple site organization consisting of ambulatory clinics and hospital sitesin [place], [place], [place] and [place]. This disclosure is being madepursuant to the Care Everywhere program and may not contain all information available regarding this patient. Last updated 18.[facility] Social History Tobacco Use Types Packs/Day Years [...] to complete this topic MENINGOCOCCAL (Group B) VACC INE SHARED DECISION-MAKING Aged Out No longer eligibl e based on patient's age to complete this topic MENINGOCOCCAL GROUPS A/C/Y/W VACCINE Aged Out No longer eligible b ased on patient's age to complete this topic Care Teams Secondary Spanish Teacher Relationship Specialty Start Date End Date Bobby Shepherd MD [address] [place] [address] PCP - General 09/17/19
--- OUTSIDE RECORDS SUMMARY | 2024-10-23 14:11 | XMS_ITS | Referral Summary ---
Author Organization [facility] Address [address] [place] [id number] Care Team Providers Care Advertising Rep Name Role Phone Bobby Shepherd MD Primary Care Provider [phone] Kwabena Yost MD Unavailable [phone] Jesus Roque MD Unavailable [phone] Allergies Active Allergy Reactions Criticality Noted Date [...] on file Legal Sex Male 8:06 PM SEAFOOD TECHNOLOGY SPECIALIST Gender Identity Male 06/19/2023 9:21 AM SEAFOOD TECHNOLOGY SPECIALIST Sexual Orientation Straight 06/19/2023 9: 21 AM SEAFOOD TECHNOLOGY SPECIALIST Last Filed Vital Signs Vital Sign Reading Time Taken Comments Blood Pressure 155/81 04/29/2024 10:47 AM CDT Pulse 85 04/29/2024 10:47 AM CDT Temperature 36.1 C (96.9 F) 04/29/2024 10:47 AM CDT Respiratory Rate 15 07/27/2023 8:05 AM SEAFOOD TECHNOLOGY SPECIALIST Oxygen Saturation 92% 04/29/2024 10:47 AM CDT Inhaled Oxygen Concentration - - Weight 83.9 kg (185 lb) 04/29/2024 10:47 AM CDT Height 182.9 cm (6') 04/29/2024 10:47 AM CDT Body Mass Index 25.09 04/29/2024 10:47 AM CDT Plan of Treatment Not on file Medical Devices Implanted Type Area Lead Nitrate Processor Device Identifier Shelf Expiration Date Model / Serial / Lot Rt Wrist Pins Wrist Rt Hand Pins Hand Insurance MEDICARE SOLUTIONS MEDICARE SOLUTIONS Care Teams Advertising Rep Relationship Specialty Start Date End Date Bobby Shepherd MD PCP - General Family Medicine 06/08/23 Kwabena Yost MD [address] [facility] [address] [place] [address] Referring Physician Gastroenterology 06/26/23 Jesus Roque MD [address] [facility] [phone] [place] [address] Surgeon Colon and Rectal Surgery 06/26/23
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
--- OUTSIDE RECORDS SUMMARY | 2024-10-23 14:11 | XMS_ITS | Clinical Summary ---
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
--- OUTSIDE RECORDS SUMMARY | 2024-10-23 14:11 | XMS_ITS | Patient Health Summary ---
Author Organization [facility] Address [address] [place] [address] Care Team Providers Care Special Tax Auditor Name Role Phone Bobby Shepherd MD Primary Care Provider Note from [facility],non-owned Affiliates and Associated Physician Practices is amultiple site organization consisting of ambulatory clinics and hospital sitesin [place], [place], [place] and [place]. This disclosure is being madepursuant to the Care Everywhere program and may not contain all information available regarding this patient. Last updated 18.[facility] Social History Tobacco Use Types Packs/Day Years Used Date Smoking Tobacco: Never Assessed Sex and Gender Information Value Date Recorded Sex Assigned at Not on file Gender Identity Not on file Sexual Orientation Not on file Procedures * DERMATOPATHOLOGY(Performed 09/16/2019) * DERMATOPATHOLOGY(Performed 10/16/2017) Results * DERMATOPATHOLOGY (09/16/2019 12:00 AM BUNDLE PACKER) Only the most recent of2 resultswithin the time period is included. Case Report Dermatopathology Report Case: [id number] Authorizing Provider: Bobby Shepherd MD Collected: 09/16/2019 12:00 AM Ordering Location: [facility] Received: 09/17/2019 01:23 PM Pathologist: Phillip Godinez MD Specimen: Skin, left abdomen 0 5:01 PM BUNDLE PACKER DERMATOPATHOLOGY LABORATORY Final Diagnosis Specimen A. SKIN, left abdomen: BENIGN VERRUCOUS KERATOSIS WITH OVERLYING CHANGES OF PRURIGO NODULARIS (L82.1) NOT PRESENT AT SAMPLED MARGIN 0 5:01 PM [facility] DERMATOPATHOLOGY LABORATORY Clinical History Changing lesion. Check margins. 0 5:01 PM [facility] DERMATOPATHOLOGY LABORATORY Gross Description Specimen A: Received is one formalin filled container labeled with the patients name and designated left abdomen. The specimen consists of a [id number] excision of skin. The margin is inked green. The specimen is bisected lengthwise and submitted in 1 cassette. Jar 0. 0 5:01 PM [facility] DERMATOPATHOLOGY LABORATORY Microscopic Description Specimen [...] margin of the specimen. 0 5:01 PM [facility] DERMATOPATHOLOGY LABORATORY Disclaimer An external and internal positive and negative controls are appropriate for the histochemical, immunohistochemical and immunofluorescence stain(s) in this case (if any), except where stated explicitly. The performance characteristics of the stain(s) cited in this report were developed and its performance characteristic determined by the Dermatopathology Laboratory at [facility], directed by Dr. Sarah Godinez. These tests need not be, and therefore are not, approved by the [place] Food and Drug Administration. The tests are used for clinical purposes. Billing Codes Specimen Charges Stain Charges 13859 1 0 5:01 PM [facility] DERMATOPATHOLOGY LABORATORY Embedded Images 0 5:01 PM [facility] DERMATOPATHOLOGY LABORATORY Pathology/Cytolog y TISSUE SPECIMEN FROM SKIN / Unknown 09/16/2019 09/17/2019 1:23 PM [facility] Bobby Shepherd MD LAB - PATHOLOGY/CYTO LOGY ORDERABLES DERMATOPATHOLOGY LABORATORY [facility] - Department of Dermatology [address] [facility], 5th Floor Lab [address] [phone] Care Teams Special Tax Auditor Relationship Specialty Start Date End Date Bobby Shepherd MD [address] [place] [address] PCP - General 09/17/19
--- OUTSIDE RECORDS SUMMARY | 2024-10-23 14:11 | XMS_ITS | Clinical Summary ---
Author Organization [facility] Address [address] [place] [address] Care Team Providers Care Online Communications Specialist Name Role Phone Bobby Shepherd MD Primary Care Provider [phone] Social History Tobacco Use Types Packs/Day Years [...] complete this topic Insurance MEDICARE Care Teams Online Communications Specialist Relationship Specialty Start Date End Date Bobby Shepherd MD [address] [place], [place] [id number] PCP - General FAMILY PRACTICE 04/11/21
== END 2024-10-23 12:47 | disposition home or self-care (01) ==
PROVIDERS: PCP Family Medicine
DX: I49.9 Cardiac arrhythmia, unspecified (principal); J43.9 Emphysema, unspecified
CPT/HCPCS: 93242

== ENCOUNTER 2024-12-01 01:17 | Day surgery (SDC) | payer MEDICARE, MEDICAID, SELFPAY ==
[2024-11-20 13:09] VITALS: BMI 24.5
--- OUTSIDE RECORDS SUMMARY | 2024-12-01 01:21 | XMS_ITS | Clinical Summary ---
Author Organization [facility] Address [address] [place] [address] Care Team Providers Care Power Line Lineman Name Role Phone Bobby Shepherd MD Primary Care Provider [phone] Source Comments [facility],non-owned Affiliates and Associated Physician Practices is amultiple site organization consisting of ambulatory clinics and hospital sitesin [place], [place], [place] and [place]. This disclosure is being madepursuant to the Care Everywhere program and may not contain all information available regarding this patient. 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 Gender Identity Not on file Sexual Orientation [...] VACCINE ( - 2023-2 5 season) 2024 DEPRESSION SCREENING 08/13/2024 MEDICARE AWV CALENDAR YEAR 2024 INFLUENZA VACCINE (Season Ended) 2025 Respiratory Syncytial Virus (RSV) Vaccine Pt: or [...] patient's age to complete this topic Insurance [address] [place] [address] MEDICARE MEDICAID - OUT OF STATE [facility] MANAGED MEDICARE [facility] Care Teams Power Line Lineman Relationship Specialty Start Date End Date Bobby Shepherd MD [address] [place] [address] PCP - General 09/17/19
--- OUTSIDE RECORDS SUMMARY | 2024-12-01 01:21 | XMS_ITS | Referral Summary ---
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 Gender Identity Male 06/19/2023 9:21 AM BEADER TENDER Sexual Orientation Straight 06/19/2023 9: 21 AM BEADER TENDER Last Filed Vital Signs Vital Sign Reading Time Taken Comments Blood Pressure 155/81 04/29/2024 10:47 AM CDT Pulse 85 04/29/2024 10:47 AM CDT Temperature 36.1 C (96.9 F) 04/29/2024 10:47 AM CDT Respiratory Rate 15 07/27/2023 8:05 AM BEADER TENDER Oxygen Saturation 92% 04/29/2024 10:47 AM CDT Inhaled Oxygen Concentration - - Weight 83.9 kg (185 lb) 04/29/2024 10:47 AM CDT Height 182.9 cm (6') 04/29/2024 10:47 AM CDT Body Mass Index 25.09 04/29/2024 10:47 AM CDT Plan of Treatment Not on file Medical Devices Implanted Type Area General Engineer Device Identifier Shelf Expiration Date Model / Serial / Lot Rt Wrist Pins Wrist Rt Hand Pins Hand Insurance Care Teams Coremaking Supervisor Relationship Specialty Start Date End Date Bobby Shepherd MD PCP - General Family Medicine 06/08/23 Kwabena Yost MD [address] [facility] [address] [place] [address] Referring Physician Gastroenterology 06/26/23 Jesus Roque MD [id number] [place] [address] Surgeon Colon and Rectal Surgery 06/26/23
--- OUTSIDE RECORDS SUMMARY | 2024-12-01 01:21 | XMS_ITS | Clinical Summary ---
Author Organization [facility] Address [address] [place] [address] Care Team Providers Care Sustainment Logistics Analyst Name Role Phone Bobby Shepherd MD Primary Care Provider + [phone] Kwabena Yost MD Unavailable [phone] Jesus Roque MD Unavailable [phone] Allergies Active Allergy Reactions Criticality Noted Date [...] on file Legal Sex Male 8:06 PM YEAST CULTURE DEVELOPER Gender Identity Male 06/19/2023 9:21 AM YEAST CULTURE DEVELOPER Sexual Orientation Straight 06/19/2023 9: 21 AM YEAST CULTURE DEVELOPER Obstetrics History Last Filed Vital Signs Vital Sign Reading Time Taken Comments Blood Pressure 155/81 04/29/2024 10:47 AM CDT Pulse 85 04/29/2024 10:47 AM CDT Temperature 36.1 C (96.9 F) 04/29/2024 10:47 AM CDT Respiratory Rate 15 07/27/2023 8:05 AM YEAST CULTURE DEVELOPER Oxygen Saturation 92% 04/29/2024 10:47 AM CDT [...] (AAA) Screen 2022 Well Visit 65+ 2022 Fall Risk Assessment 07/27/2024 07/27/2023 Influenza Vaccine (Season Ended) 2025 Medical Devices Implanted Type Area Real Estate Operations Manager Device Identifier Shelf Expiration Date Model / Serial / Lot Rt Wrist Pins Wrist Rt Hand Pins Hand Insurance Care Teams Sustainment Logistics Analyst Relationship Specialty Start Date End Date Bobby Shepherd MD PCP - General Family Medicine 06/08/23 Kwabena Yost MD [address] [facility] [address] [facility] [address] [place] [address] Referring Physician Gastroenterology 06/26/23 Jesus Roque MD [phone] [place] [address] Surgeon Colon and Rectal Surgery 06/26/23
--- OUTSIDE RECORDS SUMMARY | 2024-12-01 01:21 | XMS_ITS | Encounter Summary ---
Author Organization [facility] Address [address] [place] [address] Care Team Providers Care Claims Director Name Role Phone Bobby Shepherd MD Primary Care Provider [phone] Encounter Details Date Type Department Care Team (Late st Contact Info) Description 09/17/2019 Lab Requisition [facility] [address] [place] [id number] Bobby Shepherd MD [address] [place] [address] Social History Tobacco Use Types Packs/Day Years Used Date Smoking Tobacco: Never Assessed Sex and Gender Information Value Date Recorded Sex Assigned at Not on file Legal Sex Male 6:01 AM LUMBER SORTER Gender Identity Not on file Sexual Orientation Not on file documented as of this encounter Plan of Treatment Not on file documented as of this encounter Procedures Procedure Name Priority Date/Time Associated Diagnosis Comments DERMATOPATHOLOGY Routine 09/16/2019 12:0 0 AM LUMBER SORTER documented in this encounter Results * DERMATOPATHOLOGY (09/16/2019 12:00 AM LUMBER SORTER) Case Report Dermatopathology Report Case: [id number] Authorizing Provider: Bobby Shepherd MD Collected: 09/16/2019 12:00 AM Ordering Location: [facility] Received: 09/17/2019 01:23 PM Pathologist: Phillip Godinez MD Specimen: Skin, left abdomen 0 5:01 PM [facility] Final Diagnosis Specimen A. SKIN, left abdomen: BENIGN VERRUCOUS KERATOSIS WITH OVERLYING CHANGES OF PRURIGO NODULARIS (L82.1) NOT PRESENT AT SAMPLED MARGIN 0 5:01 PM [facility] Clinical History Changing lesion. Check margins. 0 5:01 PM [facility] DERMATOPATHOLOGY LABORATORY Gross Description Specimen A: Received is one formalin filled container labeled with the patients name and designated left abdomen. The specimen consists of a [id number] excision of skin. The margin is inked green. The specimen is bisected lengthwise and submitted in 1 cassette. Jar 0. 0 5:01 PM [facility] DERMATOPATHOLOGY LABORATORY Microscopic Description Specimen A. [...] margin of the specimen. 0 5:01 PM [facility] DERMATOPATHOLOGY LABORATORY Disclaimer An external and internal positive and negative controls are appropriate for the histochemical, immunohistochemical and immunofluorescence stain(s) in this case (if any), except where stated explicitly. The performance characteristics of the stain(s) cited in this report were developed and its performance characteristic determined by the Dermatopathology Laboratory at [facility], directed by Dr. Sarah Godinez. These tests need not be, and therefore are not, approved by the [place] Food and Drug Administration. The tests are used for clinical purposes. Billing Codes Specimen Charges Stain Charges 30392 1 0 5:01 PM [facility] DERMATOPATHOLOGY LABORATORY Embedded Images 0 5:01 PM [facility] DERMATOPATHOLOGY LABORATORY Pathology/Cytolog y TISSUE SPECIMEN FROM SKIN / Unknown 09/16/2019 09/17/2019 1:23 PM [facility] us Bobbykavitha Shepherd MD LAB - PATHOLOGY/CYTOLOGY ALEXISE ALISHA Final Result DERMATOPATHOLOGY LABORATORY [facility] - Department of Dermatology [address] [place] [address], 5th Floor Lab [address] [place], [place] [id number] [place] [address] documented in this encounter Visit Diagnoses Not on filedocumented in this encounter Care Teams Claims Director Relationship Specialty Start Date End Date Bobby Shepherd MD [address] [place] [address] PCP - General 09/17/19 documented as of this encounter
--- OUTSIDE RECORDS SUMMARY | 2024-12-01 01:21 | XMS_ITS | Continuity of Care Document ---
Author Organization [facility] Address [address] [place] [address] Phone Care Team Providers Care Hr Internship Name Role Phone Chi Mas Unavailable Unavailable [...] Diagnoses Date Provider Providers Copied on Encounter [facility], [address], [place], [place], [id number], [place] tel:[phone] [facility] No Information [address] [place], [address], [place]. tel:[phone] [facility], [address], [place], [place], [id number], [place] tel:[phone] [facility] No Information Aug-2 5-[address] [place], [address], [place]. tel:[phone] [facility], [address], [place], [place], [id number], [place] tel:[phone] [facility] No Information Janak-3 0-[address] [place], [address], [place]. tel:[phone] [facility], [address], [place], [place], [id number], [place] tel:[phone] [facility] No Information Janak-1 6-[address] [place], [place], [facility], [place]. tel:[phone] [facility], [address], [place], [place], [id number], [place] tel:[phone] [facility] No Information Janak-1 2-[address] [place], [place], [facility], [place]. tel:[phone] [facility], [address], [place], [place], [address], [place] tel:[phone] [facility] No Information Janak-0 5-[address] [place], [address], [place]. tel:[phone] Referring Provider: Chi Leija, [address] [place], [address]. tel:[phone] [facility], [address], [place], [place], [id number], [place] tel:[phone] [facility] No Information Janak-0 3-200 [address], [place], [place], [facility], [place]. tel:[phone] [facility], [address], [place], [place], [id number], [place] tel:[phone] [facility] No Information Oct-200 [address] [place], [facility], [place]. tel:[phone] [facility], [address], [place], [place], [id number], [place] tel:[phone] [facility] No Information [address] [place], [facility], [place]. tel:[phone] Referring Provider: Chi Leija, [address] [place], [place], [facility] tel:[phone] Office Consultation [facility], [address], [place], [place], [id number], [place] tel:[phone] [facility] No Information Jun-2 [address] [place], [place], [facility], [place]. tel:[phone] Referring Provider: Peyman Roland OD A, [address], [place], [place], [facility] tel:[phone] [facility], [address], [place], [place], [id number], [place] tel:[phone] [facility] No Information Nov-2 9-200 7 Roland OD Peyman. [address], [place], [place], [facility], [place]. tel:[phone] Family History Family Member Type Diagnosis Age At Onset No Information Payers Payer name Insurance type Covered constitution party ID Authoriza tion(s) Medicare [facility] [id number] Medicaid [facility] [id number] Social History Type Description Quantity Date Captured [...]
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
--- OUTSIDE RECORDS SUMMARY | 2024-12-01 01:21 | XMS_ITS | Clinical Summary ---
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
--- OUTSIDE RECORDS SUMMARY | 2024-12-01 01:21 | XMS_ITS | Clinical Summary ---
Author Organization [facility] Address [address] [place] [address] Care Team Providers Care Electrician Outside Name Role Phone Bobby Shepherd MD Primary Care Provider [phone] Social History Tobacco Use Types Packs/Day Years [...] Td Vaccines ( 1 - Tdap) 1976 Pneumococcal Vaccine: 50+ Ye ars (1 of 1 - PCV) 12/31/2007 Zoster Vaccines (1 of 2) 12/31/2007 Annual Medicare Wellness Visit 2022 COVID-19 Vaccine ( - 2023-2 5 season) 2024 RSV Immunization or 60+ Years (1 [...] complete this topic Insurance MEDICARE Care Teams Electrician Outside Relationship Specialty Start Date End Date Bobby Shepherd MD [address] [place] [place] [address] PCP - General FAMILY PRACTICE 04/11/21
[2024-12-01 10:37] VITALS: BP 174/103; PULSE 84; RESP 18; TEMP 36.5; O2SAT 97
[2024-12-01] MEDS: LACTATED RINGERS 1,000 ML 150 ML IV CONT (10:46)
--- NOTE | 2024-12-01 11:07 | WPDANESEPPF ---
Anes - Initial Pre Proc Eval Procedure: Operation Date: 12/01/24 10:30 Proposed Procedures p Colonoscopy - Todd Stanford MD Date/Time: 12/01/24 11:07 Surgeon: Todd Stanford MD Pre Op Diagnosis: disease of anus and rectum Patient Data Age: 68 Gender: M Height: 1.8 m Weight: 82.5 kg Last Vital Signs Temp 36.5 C 12/01/24 10:37 Pulse 84 12/01/24 10:37 Resp 18 12/01/24 10:37 BP 174/103 H 12/01/24 10:37 Pulse Ox 97 12/01/24 10:37 O2 Del Method Room Air 12/01/24 10:37 Allergies Allergy/AdvReac Type Severity Reaction Status Date / Time aspirin Allergy Mild Nausea Verified 12/01/24 10:34 NSAIDS (Non-Steroidal Allergy Mild Nausea Verified 12/01/24 10:34 Anti-Inflamma Home Medications ?Medication ?Instructions ?Recorded ?Confirmed ?Type solifenacin 10 mg tablet 10 mg PO .QD 09/28/22 11/20/24 History tamsulosin 0.4 mg capsule 0.4 mg PO DAILY 05/22/23 11/20/24 History vibegron 75 mg tablet (Gemtesa) 75 mg PO DAILY 05/08/24 11/20/24 History lisinopril 20 mg tablet 20 mg PO DAILY #90 tabs 07/07/24 12/01/24 Rx rosuvastatin 20 mg tablet 20 mg PO QHS #90 tabs 07/07/24 11/20/24 Rx polyethylene glycol 3350 17 17 g PO DAILY #510 grams 08/07/24 11/20/24 Rx gram/dose oral powder (Miralax) tadalafil 10 mg tablet 10 mg PO DAILY PRN sexual activity 08/07/24 11/20/24 History budesonide 160 mcg-glycopyr 9 2 inh inhalation BID #17.7 grams 10/01/24 11/20/24 Rx mcg-formot 4.8 mcg/actuation HFA inhaler (Breztri Aerosphere) esomeprazole magnesium 40 mg See Rx Instructions .Route 10/06/24 11/20/24 Rx capsule,delayed release .COMPLEX #90 caps albuterol 90 mcg-budesonide 80 2 inh inhalation 6XD PRN shortness 10/24/24 11/20/24 Rx mcg/actuation HFA aerosol inhaler of breath #32.1 grams (Airsupra) duloxetine 60 mg capsule,delayed 60 mg PO DAILY #90 caps 11/21/24 Rx release trazodone 100 mg tablet See Rx Instructions .Route 11/21/24 Rx .COMPLEX #270 tabs oxycodone 15 mg tablet 15 mg PO Q6H PRN LDDD #120 tabs 11/26/24 11/26/24 Rx Patient hx anesthesia problems: none Family hx anesthesia problems: none Results Review: All pre-operative results and documents have been reviewed as part of the pre-operative evaluation. [facility] Past Medical History Medical History Stress due to illness of family member Chronic diarrhea Hemorrhoids, internal External hemorrhoids Paroxysmal supraventricular tachycardia by electrocardiogram (ECG) Radicular pain of upper extremity Neuroforaminal stenosis of cervical spine Anal lesion Left lower quadrant abdominal pain Coccyx pain Asthma Prostate cancer Hemorrhoids Breast mass in male Elevated PSA Nasal congestion Mixed hyperlipidemia Wheeze Cough Abnormal MRI, lumbar spine Lumbar spondylolysis Bladder spasm Skin lesion of chest wall TMJ (temporomandibular joint disorder) Tobacco dependence due to cigarettes (Unknown) Diverticulosis Colon, diverticulosis Colon cancer screening Depression GERD (gastroesophageal reflux disease) Irregular heart beat Hypertension Hyperlipidemia Changing skin lesion Rectal bleeding Colon, diverticulosis Constipation Degenerative lumbar disc BPH (benign prostatic hyperplasia) Tachycardia Surgical History Surgical History Hx of prostate biopsy H/O knee surgery History of eye surgery History of tonsillectomy History of appendectomy History of back surgery Family History Family History Sibling Family history of mental disorder Fibromyalgia Mother Family history of chronic obstructive pulmonary disease Hypertension Father Bone cancer Other Cerebrovascular accident Diabetes mellitus Family history of allergic disorder Heart disease Social History Social History Smoking packs per day: 0.75 Smoking cigarettes per day: 15.0 Years smoked: 47 Smoking pack-years: 35.25 Smoking status: Current every day smoker Tobacco type: cigarettes Second hand tobacco smoke exposure: Yes Alcohol intake: former Substance use: current Substance use type: marijuana Other substance usage details: SMOKES MARIJUANA DAILY Do You Feel Safe in your Home?: Yes Lack of Transportation: No Lack of Food: Never True Current Housing: I Have Housing Concerned About Future Housing: No Difficulty Paying Gas/Electric Bills: No Difficulty Paying for Meds: No Currently Unemployed: Decline to Answer Education: Trade/Vocational Certificate Difficulty w/ Childcare or Family Care: No Living arrangements: with family Occupation/Education: other 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 Gender identity (if verbalized by the patient): Male Spiritual care concerns: No Anes - Eval Final PreProcedure Day of Procedure 12/01/24 11:07 Patient weight: normal Heart: regular rate and rhythm Lungs: clear to auscultation Airway: Mallampati scale class II Neurological: alert and oriented Last oral intake: >/= 8 hours ASA classification: III Emergent: no Anesthetic plan: proceed Anesthesia type and monitoring: general GIVS and standard monitoring Results Review: All pre-operative results and documents have been reviewed as part of the pre-operative evaluation. Informed Consent: The patient's anesthetic plan and its attendant risks and benefits were discussed with the patient/family/POA. Questions were solicited and answers provided to the satisfaction of the patient/family/POA.
--- NOTE | 2024-12-01 12:05 | P.HP_ITS ---
History of Present Illness History of Present Illness Consent: Risks, benefits, and alternatives have been discussed and questions answered. Patient agrees to proceed with procedure. Chief complaint: disease of anus and rectum Narrative: Avery Jurado is a 68 year old male here for another colonoscopy, last one 2022 diagnosed with AIN (anal intraepithelial neoplasia), he saw CRS Dr Roque underwent local resection but needs to follow-up (last appointment missed because of transportation issues) Review of Systems Review of Systems: All systems reviewed & are unremarkable except as noted in HPI and below PMFSH Past Medical History Medical History (Updated 12/01/24 @ 12:07 by Todd Stanford MD) Anal intraepithelial neoplasia III Stress due to illness of family member Chronic diarrhea Hemorrhoids, internal External hemorrhoids Paroxysmal supraventricular tachycardia by electrocardiogram (ECG) Radicular pain of upper extremity Neuroforaminal stenosis of cervical spine Anal lesion Left lower quadrant abdominal pain Coccyx pain Asthma Prostate cancer Hemorrhoids Breast mass in male Elevated PSA Nasal congestion Mixed hyperlipidemia Wheeze Cough Abnormal MRI, lumbar spine Lumbar spondylolysis Bladder spasm Skin lesion of chest wall TMJ (temporomandibular joint disorder) Tobacco dependence due to cigarettes (Unknown) Diverticulosis Colon, diverticulosis Colon cancer screening Depression GERD (gastroesophageal reflux disease) Irregular heart beat Hypertension Hyperlipidemia Changing skin lesion Rectal bleeding Colon, diverticulosis Constipation Degenerative lumbar disc BPH (benign prostatic hyperplasia) Tachycardia Surgical History Surgical History Hx of prostate biopsy H/O knee surgery History of eye surgery History of tonsillectomy History of appendectomy History of back surgery Family History Family History Sibling Family history of mental disorder Fibromyalgia Mother Family history of chronic obstructive pulmonary disease Hypertension Father Bone cancer Other Cerebrovascular accident Diabetes mellitus Family history of allergic disorder Heart disease Social History Social History Smoking packs per day: 0.75 Smoking cigarettes per day: 15.0 Years smoked: 47 Smoking pack-years: 35.25 Smoking status: Current every day smoker Tobacco type: cigarettes Second hand tobacco smoke exposure: Yes Alcohol intake: former Substance use: current Substance use type: marijuana Other substance usage details: SMOKES MARIJUANA DAILY Do You Feel Safe in your Home?: Yes Lack of Transportation: No Lack of Food: Never True Current Housing: I Have Housing Concerned About Future Housing: No Difficulty Paying Gas/Electric Bills: No Difficulty Paying for Meds: No Currently Unemployed: Decline to Answer Education: Trade/Vocational Certificate Difficulty w/ Childcare or Family Care: No Living arrangements: with family Occupation/Education: other 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 Gender identity (if verbalized by the patient): Male Spiritual care concerns: No Meds Home Medications and Allergies Home Medications ?Medication ?Instructions ?Recorded ?Confirmed ?Type solifenacin 10 mg tablet 10 mg PO .QD 09/28/22 11/20/24 History tamsulosin 0.4 mg capsule 0.4 mg PO DAILY 05/22/23 11/20/24 History vibegron 75 mg tablet (Gemtesa) 75 mg PO DAILY 05/08/24 11/20/24 History lisinopril 20 mg tablet 20 mg PO DAILY #90 tabs 07/07/24 12/01/24 Rx rosuvastatin 20 mg tablet 20 mg PO QHS #90 tabs 07/07/24 11/20/24 Rx polyethylene glycol 3350 17 17 g PO DAILY #510 grams 08/07/24 11/20/24 Rx gram/dose oral powder (Miralax) tadalafil 10 mg tablet 10 mg PO DAILY PRN sexual activity 08/07/24 11/20/24 History budesonide 160 mcg-glycopyr 9 2 inh inhalation BID #17.7 grams 10/01/24 11/20/24 Rx mcg-formot 4.8 mcg/actuation HFA inhaler (Breztri Aerosphere) esomeprazole magnesium 40 mg See Rx Instructions .Route 10/06/24 11/20/24 Rx capsule,delayed release .COMPLEX #90 caps albuterol 90 mcg-budesonide 80 2 inh inhalation 6XD PRN shortness 10/24/24 11/20/24 Rx mcg/actuation HFA aerosol inhaler of breath #32.1 grams (Airsupra) duloxetine 60 mg capsule,delayed 60 mg PO DAILY #90 caps 11/21/24 Rx release trazodone 100 mg tablet See Rx Instructions .Route 11/21/24 Rx .COMPLEX #270 tabs oxycodone 15 mg tablet 15 mg PO Q6H PRN LDDD #120 tabs 11/26/24 11/26/24 Rx Allergies Allergy/AdvReac Type Severity Reaction Status Date / Time aspirin Allergy Mild Nausea Verified 12/01/24 10:34 NSAIDS (Non-Steroidal Allergy Mild Nausea Verified 12/01/24 10:34 Anti-Inflamma Vital Signs Vital Signs - 24 hr 12/01/24 10:37 Temperature 97.7 F Pulse Rate 84 Respiratory Rate 18 Blood Pressure 174/103 H Pulse Oximetry 97 Oxygen Delivery Room Air Exam Const: General: cooperative HENMT: Head: normal to inspection Mouth: Yes Normal oral and palatal mucosa present Assessment and Plan Assessment and plan (1) Anal intraepithelial neoplasia III: Code(s): D01.3 - 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
[2024-12-01 12:20] VITALS: BP 143/77; PULSE 73; RESP 15; O2SAT 97
[2024-12-01 12:30] VITALS: BP 159/85; PULSE 76; RESP 15; O2SAT 96
[2024-12-01 12:40] VITALS: BP 161/83; PULSE 83; RESP 28; O2SAT 98
== END 2024-12-01 12:46 | disposition home or self-care (01) ==
PROVIDERS: PCP Family Medicine; Referring Provider Internal Medicine Gastroenterology; Visit Provider Internal Medicine Gastroenterology
PROC: 0DJD8ZZ Inspection of Lower Intestinal Tract, Via Natural or Artificial Opening Endoscopic (ICD-10-PCS; CPT 45378; principal; 2024-12-01 10:30)
DX: Z08 Encounter for follow-up examination after completed treatment for malignant neoplasm (principal); K62.1 Rectal polyp; K57.30 Diverticulosis of large intestine without perforation or abscess without bleeding; I10 Essential (primary) hypertension; J45.909 Unspecified asthma, uncomplicated; E78.2 Mixed hyperlipidemia; N40.0 Benign prostatic hyperplasia without lower urinary tract symptoms; K21.9 Gastro-esophageal reflux disease without esophagitis; F32.A Depression, unspecified; K52.9 Noninfective gastroenteritis and colitis, unspecified; I47.10 Supraventricular tachycardia, unspecified; M48.02 Spinal stenosis, cervical region; M43.06 Spondylolysis, lumbar region; N32.89 Other specified disorders of bladder; M26.609 Unspecified temporomandibular joint disorder, unspecified side; I49.9 Cardiac arrhythmia, unspecified; M51.369 Other intervertebral disc degeneration, lumbar region without mention of lumbar back pain or lower extremity pain; F17.210 Nicotine dependence, cigarettes, uncomplicated; F12.90 Cannabis use, unspecified, uncomplicated; Z79.51 Long term (current) use of inhaled steroids; Z79.891 Long term (current) use of opiate analgesic; Z98.890 Other specified postprocedural states; Z98.1 Arthrodesis status; Z85.46 Personal history of malignant neoplasm of prostate; Z87.19 Personal history of other diseases of the digestive system; Z85.048 Personal history of other malignant neoplasm of rectum, rectosigmoid junction, and anus; Z80.8 Family history of malignant neoplasm of other organs or systems; Z82.49 Family history of ischemic heart disease and other diseases of the circulatory system
CPT/HCPCS: 45380; 88305; J2003; J2704; J7120

== ENCOUNTER 2024-12-04 08:43 | Outpatient (CLI) | payer MEDICARE, MEDICAID, SELFPAY ==
--- NOTE | ~2024-12-04 | MR_ITS ---
MRI of the cervical spine Clinical History: Radiculopathy Technique: Axial T2-weighted and gradient images, and sagittal T1-weighted, T2-weighted, and STIR jason ges were acquired. COMPARISON: 01/23/2024 Findings: There is a 2-3 mm retrolisthesis of C3 over C4. No fracture seen. No suspicious bone marrow signal abnormality seen. At C2-C3, there is no disc bulge or herniation. There is mild facet arthropathy. Probable minimal lef t neural foraminal narrowing. No alka canal stenosis, cord compression, or right neural foraminal na rrowing. At C3-C4, there is disc osteophyte complex with mild to moderate canal stenosis and associated cord c ompression. There is bilateral neural foraminal narrowing, left worse than right. At C4-C5, there is disc osteophyte complex with mild to moderate canal stenosis and minimal flattenin g the ventral cord. There is bilateral facet arthropathy with severe bilateral neural foraminal narro wing. At C5-C6, there is mild to moderate degenerative disc narrowing. No alka canal stenosis or cord comp ression. There is bilateral neural foraminal narrowing, right worse than left. At C6-C7, there is disc osteophyte complex. No alka canal stenosis or cord compression. There is manuel ateral neural foraminal narrowing. No abnormal signal seen in the spinal cord. Paravertebral soft tissues are unremarkable. Impression: Advanced degenerative spondylosis, as detailed above, worst at C3-C4. 2-3 mm retrolisthesis of C3 over C4. Reviewed, dictated and finalized at [facility]. Impression: Advanced degenerative spondylosis, as detailed above, worst at C3-C4. 2-3 mm retrolisthesis of C3 over C4.
--- NOTE | ~2024-12-04 | MR_ITS ---
MRI of the lumbar spine Clinical History: Radiculopathy Technique: Axial T2-weighted images, and sagittal T1-weighted, T2-weighted, and and T2 fat-sat images were acquired. Findings: There is 5 mm retrolisthesis of L5 over S1. There is straightening of the normal lumbar herminio dosis. No fracture seen. There are reactive marrow signal changes in particular about the L1-L2 and L 4-L5 disc spaces due to underlying degenerative disc disease. At L1-L2, there is moderate degenerative disc narrowing. There is moderate facet arthropathy. There i s minimal central canal stenosis. There is advanced bilateral neural foraminal narrowing, right worse than left. At L2-L3, there is advanced degenerative disc narrowing. There is mild disc bulge and mild facet arth ropathy. No central canal stenosis. Neural foramina are preserved. At L3-L4, there is mild to moderate degenerative disc narrowing with mild to moderate facet arthropat hy. No central canal stenosis or neural foraminal narrowing. At L4-L5, there is severe degenerative disc narrowing. There is mild to moderate facet arthropathy. N o central canal stenosis. There is severe bilateral neural foraminal narrowing. At L5-S1, there is severe degenerative disc narrowing. There is severe facet arthropathy. There is mi nimal central canal stenosis. There is severe bilateral neural foraminal narrowing. Paravertebral soft tissues are unremarkable. Impression: Advanced degenerative spondylosis, as detailed above. 5 mm retrolisthesis of L5 over S1. Reviewed, dictated and finalized at [facility]. Impression: Advanced degenerative spondylosis, as detailed above. 5 mm retrolisthesis of L5 over S1.
[2024-12-04 08:58] LABS: Basophils Absolute Auto 0.06 K/mm3 (0.00-0.10); Eosinophils Absolute Auto 0.09 K/mm3 (0.02-0.50); Eosinophils Percent Auto 1.5 % (1.0-6.0); Hemoglobin 14.8 g/dL (12.4-15.3); Immature Granulocyte Absolute 0.01 K/mm3 (0.00-0.00); Immature Granulocyte Percent A 0.2 % (0.0-0.0); Lymphocytes Absolute Auto 1.56 K/mm3 (1.10-4.50); Lymphocytes Percent Auto 25.7 % (18.0-42.0); Mean Corpuscular HGB Conc 32.9 g/dL (32-36); Mean Corpuscular Hemoglobin 31.8 pg (27.0-31.0); Mean Corpuscular Volume 96.6 fL (78.0-102.0); Mean Platelet Volume 10.7 fl (8.7-11.0); Monocytes Absolute Auto 0.66 K/mm3 (0.10-0.90); Monocytes Percent Auto 10.9 % (2.0-11.0); Neutrophils Percent Auto 60.7 % (50.0-70.0); Platelet Count Result 158 K/mm3 (150-420); Red Blood Count 4.66 M/mm3 (4.70-6.10); Red Cell Distribution Width 13.3 % (11.6-14.4); White Blood Count 6.1 K/mm3 (4.8-10.8)
--- OUTSIDE RECORDS SUMMARY | 2024-12-04 09:06 | XMS_ITS | Clinical Summary ---
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 Gender Identity Male 06/19/2023 9:21 AM BEATER ROOM SUPERVISOR Sexual Orientation Straight 06/19/2023 9: 21 AM BEATER ROOM SUPERVISOR Obstetrics History Last Filed Vital Signs Vital Sign Reading Time Taken Comments Blood Pressure 155/81 04/29/2024 10:47 AM CDT Pulse 85 04/29/2024 10:47 AM CDT Temperature 36.1 C (96.9 F) 04/29/2024 10:47 AM CDT Respiratory Rate 15 07/27/2023 8:05 AM BEATER ROOM SUPERVISOR Oxygen Saturation 92% 04/29/2024 10:47 AM CDT [...] Ended) 2025 Medical Devices Implanted Type Area Pastrycook'S Assistant Device Identifier Shelf Expiration Date Model / Serial / Lot Rt Wrist Pins Wrist Rt Hand Pins Hand Insurance [facility] Address: [address] [address] [place] [address] [facility] Address: [address] [address] [place] [address] Care Teams Professor Of Biochemistry Relationship Specialty Start Date End Date Bobby Shepherd MD PCP - General Family Medicine 06/08/23 Kwabena Yost MD [address] [facility] [address] [address] [address] [facility] [address] [place] [address] Referring Physician Gastroenterology 06/26/23 Jesus Roque MD [id number] [place] [address] Surgeon Colon and Rectal Surgery 06/26/23
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
--- OUTSIDE RECORDS SUMMARY | 2024-12-04 09:06 | XMS_ITS | Encounter Summary ---
Author Organization [facility] Address [address] [place] [address] Care Team Providers Care Armored Car Driver Name Role Phone Bobby Shepherd MD Primary Care Provider [phone] Encounter Details Date Type Department Care Team (Late st Contact Info) Description 09/17/2019 Lab Requisition [facility] D[facility] Lab [address] [place] [id number] Bobby Shepherd MD [address] [place] [address] Social History Tobacco Use Types Packs/Day Years Used Date Smoking Tobacco: Never Assessed Sex and Gender Information Value Date Recorded Sex Assigned at Not on file Legal Sex Male 6:01 AM PUBLIC HEALTH AIDE Gender Identity Not on file Sexual Orientation Not on file documented as of this encounter Plan of Treatment Not on file documented as of this encounter Procedures Procedure Name Priority Date/Time Associated Diagnosis Comments DERMATOPATHOLOGY Routine 09/16/2019 12:0 0 AM PUBLIC HEALTH AIDE documented in this encounter Results * DERMATOPATHOLOGY (09/16/2019 12:00 AM PUBLIC HEALTH AIDE) Case Report Dermatopathology Report Case: [id number] Authorizing Provider: Bobby Shepherd MD Collected: 09/16/2019 12:00 AM Ordering Location: [facility] Received: 09/17/2019 01:23 PM Pathologist: Phillip Godinez MD Specimen: Skin, left abdomen 0 5:01 PM PUBLIC HEALTH AIDE DERMATOPATHOLOGY LABORATORY Final Diagnosis Specimen A. SKIN, left abdomen: BENIGN VERRUCOUS KERATOSIS WITH OVERLYING CHANGES OF PRURIGO NODULARIS (L82.1) NOT PRESENT AT SAMPLED MARGIN 0 5:01 PM PUBLIC HEALTH AIDE DERMATOPATHOLOGY LABORATORY Clinical History Changing lesion. Check margins. 0 5:01 PM [facility] DERMATOPATHOLOGY LABORATORY Gross Description Specimen A: Received is one formalin filled container labeled with the patients name and designated left abdomen. The specimen consists of a [id number] excision of skin. The margin is inked green. The specimen is bisected lengthwise and submitted in 1 cassette. Jar 0. 0 5:01 PM [facility] DERMATOPATHOLOGY LABORATORY Microscopic Description Specimen A. [...] margin of the specimen. 0 5:01 PM [facility] DERMATOPATHOLOGY LABORATORY Disclaimer An external and internal positive and negative controls are appropriate for the histochemical, immunohistochemical and immunofluorescence stain(s) in this case (if any), except where stated explicitly. The performance characteristics of the stain(s) cited in this report were developed and its performance characteristic determined by the Dermatopathology Laboratory at [facility], directed by Dr. Sarah Godinez. These tests need not be, and therefore are not, approved by the [place] Food and Drug Administration. The tests are used for clinical purposes. Billing Codes Specimen Charges Stain Charges 01408 1 0 5:01 PM [facility] DERMATOPATHOLOGY LABORATORY Embedded Images 0 5:01 PM [facility] DERMATOPATHOLOGY LABORATORY Pathology/Cytolog y TISSUE SPECIMEN FROM SKIN / Unknown 09/16/2019 09/17/2019 1:23 PM [facility] us Bobbykavitha Shepherd MD LAB - PATHOLOGY/CYTOLOGY ALEXISE ALISHA Final Result DERMATOPATHOLOGY LABORATORY [facility] - Department of Dermatology [address] [place] [address], 5th Floor Lab [place], [place] [id number] [place] [address] documented in this encounter Visit Diagnoses Not on filedocumented in this encounter Care Teams Armored Car Driver Relationship Specialty Start Date End Date Bobby Shepherd MD [address] [place] [address] PCP - General 09/17/19 documented as of this encounter
--- OUTSIDE RECORDS SUMMARY | 2024-12-04 09:06 | XMS_ITS | Continuity of Care Document ---
Author Organization [facility] Address [address] [place] [address] Phone Care Team Providers Care Sr Vice President Name Role Phone Chi Mas Unavailable Unavailable [...] Diagnoses Date Provider Providers Copied on Encounter [facility], [address], [place], [place], [id number], [place] tel:[phone] [facility] No Information [address] [place], [address], [place]. tel:[phone] [facility], [address], [place], [place], [id number], [place] tel:[phone] [facility] No Information Aug-2 5-[address] [place], [address], [place]. tel:[phone] [facility], [address], [place], [place], [id number], [place] tel:[phone] [facility] No Information Janak-3 0-[address] [place], [address], [place]. tel:[phone] [facility], [address], [place], [place], [id number], [place] tel:[phone] [facility] No Information Janak-1 6-200 [address] [place], [place], [facility], [place]. tel:[phone] [facility], [address], [place], [place], [id number], [place] tel:[phone] [facility] No Information Janak-1 2-[address] [place], [facility], [place]. tel:[phone] [facility], [address], [place], [place], [address], [place] tel:[phone] [facility] No Information Janak-0 5-[address] [place], [address], [place]. tel:[phone] Referring Provider: Chi Leija, [address] [place], [address]. tel:[phone] [facility], [address], [place], [place], [address], [place] tel:[phone] [facility] [place] No Information Janak-0 3-200 [address], [place], [place], [facility], [place]. tel:[phone] [facility], [address], [place], [place], [id number], [place] tel:[phone] [facility] No Information Oct-200 [address] [place], [facility], [place]. tel:[phone] [facility], [address], [place], [place], [id number], [place] tel:[phone] [facility] No Information [address] [place], [facility], [place]. tel:[phone] Referring Provider: Chi Leija, [address] [place], [place], [facility]. tel:[phone] Office Consultation [facility], [address], [place], [place], [id number], [place] tel:[phone] [facility] No Information Jun-2 [address] [place], [facility], [place]. tel:[phone] Referring Provider: Peyman Roland OD A, [address], [place], [place], [facility]. tel:[phone] [facility], [address], [place], [place], [id number], [place] tel:[phone] [facility] No Information Nov-2 9-200 7 Roland OD Peyman. [address], [place], [place], [facility], [place]. tel:[phone] Family History Family Member Type Diagnosis Age At Onset No Information Payers Payer name Insurance type Covered libertarian ID Authoriza tion(s) Medicare [facility] [id number] Medicaid [facility] [id number] Social History Type Description Quantity Date Captured [...]
--- OUTSIDE RECORDS SUMMARY | 2024-12-04 09:06 | XMS_ITS | Referral Summary ---
Author Organization [facility] Address [address] [place] [address] Care Team Providers Care Mining Engineer Name Role Phone Bobby Shepherd MD Primary Care Provider + [phone] Kwabena Yost MD Unavailable [phone] Jesus Roque MD Unavailable [phone] Allergies Active Allergy Reactions Criticality Noted Date [...] on file Legal Sex Male 8:06 PM FORM PRESSER Gender Identity Male 06/19/2023 9:21 AM FORM PRESSER Sexual Orientation Straight 06/19/2023 9: 21 AM FORM PRESSER Last Filed Vital Signs Vital Sign Reading Time Taken Comments Blood Pressure 155/81 04/29/2024 10:47 AM CDT Pulse 85 04/29/2024 10:47 AM CDT Temperature 36.1 C (96.9 F) 04/29/2024 10:47 AM CDT Respiratory Rate 15 07/27/2023 8:05 AM FORM PRESSER Oxygen Saturation 92% 04/29/2024 10:47 AM CDT Inhaled Oxygen Concentration - - Weight 83.9 kg (185 lb) 04/29/2024 10:47 AM CDT Height 182.9 cm (6') 04/29/2024 10:47 AM CDT Body Mass Index 25.09 04/29/2024 10:47 AM CDT Plan of Treatment Not on file Medical Devices Implanted Type Area Door Patcher Device Identifier Shelf Expiration Date Model / Serial / Lot Rt Wrist Pins Wrist Rt Hand Pins Hand Insurance [facility] MED[facility] Address: [address] [address] [place] [address] [facility] MED[facility] Address: [facility] [address] [place] [address] Care Teams Mining Engineer Relationship Specialty Start Date End Date Bobby Shepherd MD PCP - General Family Medicine 06/08/23 Kwabena Yost MD [address] [facility] [address] [place] [address] Referring Physician Gastroenterology 06/26/23 Jesus Roque MD [phone] [place] [address] Surgeon Colon and Rectal Surgery 06/26/23
--- OUTSIDE RECORDS SUMMARY | 2024-12-04 09:06 | XMS_ITS | Clinical Summary ---
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
--- OUTSIDE RECORDS SUMMARY | 2024-12-04 09:06 | XMS_ITS | Clinical Summary ---
Author Organization [facility] Address [address] [place] [address] Care Team Providers Care Macerator Operator Name Role Phone Bobby Shepherd MD Primary Care Provider [phone] Source Comments [facility],non-owned Affiliates and Associated Physician Practices is amultiple site organization consisting of ambulatory clinics and hospital sitesin [place], [place], [place] and [place]. This disclosure is being madepursuant to the Care Everywhere program and may not contain all information available regarding this patient. 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
[2024-12-04 09:09] LABS: Hemoglobin A1C 5.5 % (<5.7)
[2024-12-04 09:38] LABS: Alanine Aminotransferase 39 U/L (16-63); Albumin Level 3.7 g/dL (3.4-5.0); Alkaline Phosphatase 100 U/L (46-116); Anion Gap 6 mmol/L (4-12); Aspartate Amino Transferase 32 U/L (15-37); Bilirubin,Total 0.3 mg/dL (0.00-1.00); Blood Urea Nitrogen 17 mg/dL (7-18); Carbon Dioxide 33 mmol/L (21-32); Chloride 106 mmol/L (98-108); Estimated Glomerular Filt Rate > 60; Glucose 115 mg/dL (70-99); Osmolality Calculated 302 mOsm/kg (285-295); Potassium 3.4 mmol/L (3.5-5.1); Sodium 145 mmol/L (136-145)
== END 2024-12-04 08:44 | disposition home or self-care (01) ==
LOC: CHSIMG 08:44
PROVIDERS: PCP Family Medicine; Visit Provider Physician Assistant
DX: R73.09 Other abnormal glucose (principal); R79.89 Other specified abnormal findings of blood chemistry; M54.16 Radiculopathy, lumbar region; M43.06 Spondylolysis, lumbar region; M54.2 Cervicalgia
CPT/HCPCS: 36415; 72141; 72148; 80053; 83036; 85025

== ENCOUNTER 2025-01-27 14:02 | Outpatient (CLI) | payer MEDICARE, SELFPAY ==
--- NOTE | 2025-01-27 14:05 | ECHO_ITS ---
Patient Info Name: Avery Jurado Age: 69 years : 1955 Gender: Male Ht: 71 in Wt: 185 lbs BSA: 2.06 m2 HR: 75 bpm BP: 152 / 84 mmHg Technical Quality: Good Exam Date: 01/27/2025 2:06 PM Patient Status: O Admit Date: 01/27/2025 Exam Type: CA echo doppler color flow Complete two-dimensional, color flow and Doppler transthoracic echocardiogram is performed. Artistic Director: Shanelle Caba Attending Provider: Tiomthy Edmonds DO Summary 1. Complete two-dimensional, color flow and Doppler transthoracic echocardiogram is performed. 2. Left ventricular chamber dimension is normal. 3. Left ventricular systolic function is normal, estimated at 60-65. 4. The left ventricular diastolic function is grade I diastolic dysfunction. 5. E/e' 9 is minimally elevated. 6. There is mild aortic valve sclerosis. 7. There is trace mitral valve regurgitation. 8. There is trace tricuspid valve regurgitation. 9. No pulmonary hypertension, estimated pulmonary arterial systolic pressure is 30 mmHg. 10. Dilated inferior vena cava with >50% collapse upon inspiration consistent with elevated right atrial pressure, 10 mmHg. Left Ventricle E/e' 9 is minimally elevated. Left ventricular chamber dimension is normal. Left ventricular systolic function is normal, estimated at 60-65. The left ventricular diastolic function is grade I diastolic dysfunction. Right Ventricle Right ventricular chamber dimension is normal. Right ventricular systolic function is normal and with normal TAPSE 2.2 cm. Left Atria Left atrial chamber dimension is normal. Right Atria Right atrial chamber dimension is normal. Aortic Valve The aortic valve is trileaflet. There is mild aortic valve sclerosis. There is no aortic valve stenosis. There is no aortic valve regurgitation. Pulmonic Valve There is no pulmonic regurgitation. Mitral Valve There is no mitral valve stenosis. There is trace mitral valve regurgitation. Tricuspid Valve There is trace tricuspid valve regurgitation. No pulmonary hypertension, estimated pulmonary arterial systolic pressure is 30 mmHg. Pericardium/Pleural There is no pericardial effusion. Inferior Vena Cava Dilated inferior vena cava with >50% collapse upon inspiration consistent with elevated right atrial pressure, 10 mmHg. Aorta The aortic root size at the sinus of Valsalva is normal. Left Ventricular Outflow Tract Name Value Normal LVOT 2D LVOT Diameter 2.2 cm LVOT Doppler LVOT Peak Velocity 99 cm/s LVOT Peak Gradient 4 mmHg LVOT Mean Gradient 2 mmHg LVOT VTI 19 cm LVOT VTI/AV VTI Ratio 0.8 LVOT Stroke Volume 72 ml LVOT CO 4.9 l/min LVOT CI 2.4 l/min/m2 Pulmonic Valve Name Value Normal PV Doppler PV Peak Velocity 102 cm/s PV Peak Gradient 4 mmHg Mitral Valve Name Value Normal MV Diastolic Function MV E Peak Velocity 92 cm/s MV A Peak Velocity 108 cm/s MV E/A 0.8 MV Decel Time (PW) 293 ms MV Annular TDI MV E/e' (Septal) 10.1 MV E/e' (Lateral) 9.0 MV E/e' (Average) 9.6 Tricuspid Valve Name Value Normal TV Regurgitation Doppler TR Peak Velocity 226 cm/s TR Peak Gradient 20 mmHg Estimated PAP/RSVP RA Pressure 10 mmHg <=5 PA Systolic Pressure 30 mmHg <36 RV Systolic Pressure 30 mmHg <36 TV Annular TDI TV Lateral Venessa s' Velocity 12.8 cm/s >=9.5 Aortic Valve Name Value Normal AV Doppler AV Peak Velocity 128 cm/s AV Peak Gradient 7 mmHg AV Mean Gradient 4 mmHg AV VTI 24 cm AV Area (Cont Eq VTI) 3.0 cm2 >=3.0 AV Area (Cont Eq Miguel Angel) 3.0 cm2 AV DI (Miguel Angel) 0.77 AV Regurgitation 2D LVOT Area 3.9 cm2 Ventricles Name Value Normal LV Dimensions 2D/MM IVS Diastolic Thickness (2D) 1.0 cm 0.6-1.0 LVID Diastole (2D) 3.9 cm 4.2-5.8 LVIW Diastolic Thickness (2D) 1.0 cm 0.6-1.0 LVID Systole (2D) 2.9 cm 2.5-4.0 LVOT Diameter 2.2 cm LV Mass (2D Cubed) 116.90 g 88.00-224.00 LV Mass Index (2D Cubed) 57 g/m2 49-115 Relative Wall Thickness (2D) 0.50 <=0.42 LV Fractional Shortening/Ejection Fraction 2D/MM LV Fractional Shortening (2D) 25 % 25-43 LV EF (2D Teichholz) 49 % LV Diastolic Volume (4C MOD) 91 ml LV EF (4C MOD) 58 % LV Diastolic Volume (2C MOD) 98 ml LV EF (2C MOD) 61 % LV Diastolic Volume (BP MOD) 97 ml 62-150 LV Diastolic Volume Index (BP MOD) 47 ml/m2 34-74 LV Systolic Volume (BP MOD) 39 ml 21-61 LV Systolic Volume Index (BP MOD) 19 ml/m2 11-31 LV EF (BP MOD) 60 % 52-72 LV Diastolic Length (4C) 8.3 cm LV Systolic Length (4C) 6.7 cm LV Stroke Volume (4C MOD) 53 ml Atria Name Value Normal LA Dimensions LA Volume (4C A-L) 30 ml LA Volume (BP A-L) 33 ml RA Dimensions RA Systolic Major Avon Length (4C) 4.6 cm 2.1-2.7 RA Area (4C) 14.6 cm2 <=18.0 Report Signatures
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
--- OUTSIDE RECORDS SUMMARY | 2025-01-27 14:50 | XMS_ITS | Referral Summary ---
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 Gender Identity Male 06/19/2023 9:21 AM ETHNOLOGY TEACHER Sexual Orientation Straight 06/19/2023 9: 21 AM ETHNOLOGY TEACHER Last Filed Vital Signs Vital Sign Reading Time Taken Comments Blood Pressure 155/81 04/29/2024 10:47 AM CDT Pulse 85 04/29/2024 10:47 AM CDT Temperature 36.1 C (96.9 F) 04/29/2024 10:47 AM CDT Respiratory Rate 15 07/27/2023 8:05 AM ETHNOLOGY TEACHER Oxygen Saturation 92% 04/29/2024 10:47 AM CDT Inhaled Oxygen Concentration - - Weight 83.9 kg (185 lb) 04/29/2024 10:47 AM CDT Height 182.9 cm (6') 04/29/2024 10:47 AM CDT Body Mass Index 25.09 04/29/2024 10:47 AM CDT Plan of Treatment Not on file Medical Devices Implanted Type Area Outpatient Scheduler Device Identifier Shelf Expiration Date Model / Serial / Lot Rt Wrist Pins Wrist Rt Hand Pins Hand Insurance Care Teams Automotive Sales Executive Relationship Specialty Start Date End Date Bobby Shepherd MD PCP - General Family Medicine 06/08/23 Kwabena Yost MD [address] [facility] [address] [place] [address] Referring Physician Gastroenterology 06/26/23 Jesus Roque MD [phone] [place] [address] Surgeon Colon and Rectal Surgery 06/26/23
--- OUTSIDE RECORDS SUMMARY | 2025-01-27 14:50 | XMS_ITS | Clinical Summary ---
Author Organization 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 Gender Identity Male 06/19/2023 9:21 AM WIREWORKER SUPERVISOR Sexual Orientation Straight 06/19/2023 9: 21 AM WIREWORKER SUPERVISOR Obstetrics History Last Filed Vital Signs Vital Sign Reading Time Taken Comments Blood Pressure 155/81 04/29/2024 10:47 AM CDT Pulse 85 04/29/2024 10:47 AM CDT Temperature 36.1 C (96.9 F) 04/29/2024 10:47 AM CDT Respiratory Rate 15 07/27/2023 8:05 AM WIREWORKER SUPERVISOR Oxygen Saturation 92% 04/29/2024 10:47 AM [...] Ended) 2025 Medical Devices Implanted Type Area Light Technician Device Identifier Shelf Expiration Date Model / Serial / Lot Rt Wrist Pins Wrist Rt Hand Pins Hand Insurance [facility]IC[facility] Address: [address] [address] [place] [address] [facility] MEDICARE Address: [address] [address] [place] [address] Care Teams Public Speaking Coach Relationship Specialty Start Date End Date Bobby Shepherd MD PCP - General Family Medicine 06/08/23 Kwabena Yost MD [address] [facility] [address] [facility] [address] [place] [address] Referring Physician Gastroenterology 06/26/23 Jesus Roque MD [phone] [place] [address] Surgeon Colon and Rectal Surgery 06/26/23
--- OUTSIDE RECORDS SUMMARY | 2025-01-27 14:50 | XMS_ITS | Clinical Summary ---
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
--- OUTSIDE RECORDS SUMMARY | 2025-01-27 14:50 | XMS_ITS | Clinical Summary ---
Author Organization [facility] [employer] Address [address] [place] [address] Care Team Providers Care Digital Project Manager Name Role Phone Bobby Shepherd MD Primary Care Provider [phone] Source Comments [facility] [employer],non-owned Affiliates and Associated Physician Practices is amultiple site organization consisting of ambulatory clinics and hospital sitesin [place], [place], [place] and [place]. This disclosure is being madepursuant to the Care Everywhere program and may not contain all information available regarding this patient. 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 Gender Identity Not on file Sexual Orientation [...] COLON CA SCREENING 1955 LIPID TESTING 1955 MEDICARE AWV 12 MONTHS 1955 HEPATITIS C SCREENING 12/26/1975 DTAP/TDAP/TD VACCINES (1 - Tdap) 1976 PNEUMOCOCCAL VACCINE 50+ (1 of 1 - PCV) 12/31/2007 ZOSTER VACCINE (1 of 2) 12/31/2007 COVID-19 VACCINE ( - 2023-2 5 season) 2024 DEPRESSION SCREENING 08/13/2024 INFLUENZA VACCINE (Season Ended) 2025 Respiratory Syncytial [...] complete this topic Insurance [address] [place] [address] MEDICARE MEDICAID - OUT OF STATE [facility] MANAGED MEDICARE [facility] MEDICAID - [place] SELF PAY NO INSURANCE Member Subscriber Plan / Payer (Ef fective for All Dates) Name:Avery Jurado Sr Member ID:Not on file Relation to Subscriber:Not on file Name:AVERY JURADO SR Subscriber ID:Not on file (Home) Address: [facility] [address] [place] [address] Payer ID:Not on file Group ID:Not on file Type:Self Pay Address: [place], [place] [facility] MANAGED MEDICARE ADV Care Teams Digital Project Manager Relationship Specialty Start Date End Date Bobby Shepherd MD [address] [place] [address] PCP - General 09/17/19
--- OUTSIDE RECORDS SUMMARY | 2025-01-27 14:50 | XMS_ITS | Encounter Summary ---
Author Organization [facility] Address [address] [place] [place] [address] Care Team Providers Care Regulatory Compliance Officer Name Role Phone Bobby Shepherd MD Primary Care Provider [phone] Encounter Details Date Type Department Care Team (Late st Contact Info) Description 09/17/2019 Lab Requisition [facility] DermPath Lab [address] [place] [id number] Bobby Shepherd MD [address] [place] [address] Social History Tobacco Use Types Packs/Day Years Used Date Smoking Tobacco: Never Assessed Sex and Gender Information Value Date Recorded Sex Assigned at Not on file Legal Sex Male 6:01 AM SHAREPOINT ARCHITECT Gender Identity Not on file Sexual Orientation Not on file documented as of this encounter Plan of Treatment Not on file documented as of this encounter Procedures Procedure Name Priority Date/Time Associated Diagnosis Comments DERMATOPATHOLOGY Routine 09/16/2019 12:0 0 AM SHAREPOINT ARCHITECT documented in this encounter Results * DERMATOPATHOLOGY (09/16/2019 12:00 AM SHAREPOINT ARCHITECT) Case Report Dermatopathology Report Case: [id number] Authorizing Provider: Bobby Shepherd MD Collected: 09/16/2019 12:00 AM Ordering Location: [facility] DermPath Lab Received: 09/17/2019 01:23 PM Pathologist: Phillip Godinez MD Specimen: Skin, left abdomen 0 5:01 PM SHAREPOINT ARCHITECT DERMATOPATHOLOGY LABORATORY Final Diagnosis Specimen A. SKIN, left abdomen: BENIGN VERRUCOUS KERATOSIS WITH OVERLYING CHANGES OF PRURIGO NODULARIS (L82.1) NOT PRESENT AT SAMPLED MARGIN 0 5:01 PM SHAREPOINT ARCHITECT DERMATOPATHOLOGY LABORATORY at [address] [facility] Clinical History Changing lesion. Check margins. 0 5:01 PM [facility] DERMATOPATHOLOGY LABORATORY Gross Description Specimen A: Received is one formalin filled container labeled with the patients name and designated left abdomen. The specimen consists of a 21h9h9by excision of skin. The margin is inked green. The specimen is bisected lengthwise and submitted in 1 cassette. Jar 0. 0 5:01 PM [facility] DERMATOPATHOLOGY LABORATORY Microscopic Description [...] of the specimen. 0 5:01 PM [facility] DERMATOPATHOLOGY LABORATORY Disclaimer An external and internal positive and negative controls are appropriate for the histochemical, immunohistochemical and immunofluorescence stain(s) in this case (if any), except where stated explicitly. The performance characteristics of the stain(s) cited in this report were developed and its performance characteristic determined by the Dermatopathology Laboratory at [facility], directed by Dr. Sarah Godinez. These tests need not be, and therefore are not, approved by the [place] Food and Drug Administration. The tests are used for clinical purposes. Billing Codes Specimen Charges Stain Charges 22565 1 0 5:01 PM [facility] DERMATOPATHOLOGY LABORATORY Embedded Images 0 5:01 PM [facility] DERMATOPATHOLOGY LABORATORY Pathology/Cytolog y TISSUE SPECIMEN FROM SKIN / Unknown 09/16/2019 09/17/2019 1:23 PM [facility] us Bobbykavitha Shepherd MD LAB - PATHOLOGY/CYTOLOGY ALEXISE ALISHA Final Result DERMATOPATHOLOGY LABORATORY [facility] - Department of Dermatology [address] [place] [address], 5th Floor Lab [address] [phone] documented in this encounter Visit Diagnoses Not on filedocumented in this encounter Care Teams Regulatory Compliance Officer Relationship Specialty Start Date End Date Bobby Shepherd MD [address] [place] [address] PCP - General 09/17/19 documented as of this encounter
--- OUTSIDE RECORDS SUMMARY | 2025-01-27 14:51 | XMS_ITS | Continuity of Care Document ---
Author Organization [facility] Address [address] [place] [address] Phone Care Team Providers Care Leadership Development Consultant Name Role Phone Chi Mas Unavailable Unavailable [...] Diagnoses Date Provider Providers Copied on Encounter [facility], [address], [place], [place], [id number], [place] tel:[phone] [facility] No Information [address] [place], [address], [place]. tel:[phone] [facility], [address], [place], [place], [id number], [place] tel:[phone] [facility] No Information Aug-2 5-[address] [place], [address], [place]. tel:[phone] [facility], [address], [place], [place], [id number], [place] tel:[phone] [facility] No Information Janak-3 0-[address] [place], [address], [place]. tel:[phone] [facility], [address], [place], [place], [id number], [place] tel:[phone] [facility] No Information Janak-1 6-200 [address] [place], [place], [facility], [place]. tel:[phone] [facility], [address], [place], [place], [id number], [place] tel:[phone] [facility] No Information Janak-1 2-200 [address] [place], [place], [facility], [place]. tel:[phone] [facility], [address], [place], [place], [id number], [place] tel:[phone] [facility] No Information Janak-0 5-[address] [place], [address], [place]. tel:[phone] Referring Provider: Chi Leija, [address] [place], [address]. tel:[phone] [facility], [address], [place], [place], [id number], [place] tel:[phone] [facility] [place] No Information Janak-0 3-200 8 Ita [address]. [address], [place], [place], [facility], [place]. tel:[phone] [facility], [address], [place], [place], [id number], [place] tel:[phone] [facility] No Information Oct-200 [address] [place], [place], [facility], [place]. tel:[phone] [facility], [address], [place], [place], [id number], [place] tel:[phone] [facility] No Information [address] [place], [place], [facility], [place]. tel:[phone] Referring Provider: Chi Leija, [address] [place], [place], [facility]. tel:[phone] Office Consultation [facility], [address], [place], [place], [id number], [place] tel:[phone] [facility] No Information Jun-2 200 [address] [place], [place], [facility], [place]. tel:[phone] Referring Provider: Peyman Roland OD A, [address], [place], [place], [facility]. tel:[phone] [facility], [address], [place], [place], [id number], [place] tel:[phone] [facility] No Information Nov-2 9-200 7 Roland OD Peyman. [address], [place], [place], [facility], [place]. tel:[phone] Family History Family Member Type Diagnosis Age At Onset No Information Payers Payer name Insurance type Covered democrat ID Authoriza tion(s) Medicare [facility] [id number] Medicaid [facility] [id number] Social History Type Description Quantity Date Captured [...]
== END 2025-01-27 14:03 | disposition home or self-care (01) ==
LOC: CHSIMG 14:03
PROVIDERS: PCP Family Medicine; Visit Provider Internal Medicine Cardiovascular Disease
DX: I47.10 Supraventricular tachycardia, unspecified (principal); I35.8 Other nonrheumatic aortic valve disorders
CPT/HCPCS: 93306

== ENCOUNTER 2025-06-26 15:19 | Outpatient (CLI) | payer MEDICARE, SELFPAY ==
--- OUTSIDE RECORDS SUMMARY | 2008-06-22 08:00 | XMS_ITS | Continuity of Care Document ---
Author Organization [facility] Address [address] [place] [address] Phone Care Team Providers Care Soda Drier Feeder Name Role Phone Chi Mas Unavailable Unavailable Procedures Procedure Date Eye Exam Established Pt Ophthalmoscopy, Subsequent Eye Exam Established Pt Ophthalmoscopy, Subsequent Post-op Follow-up Visit Ophthalmoscopy, Subsequent Post-op Follow-up Visit Ophthalmoscopy, Subsequent Eye Exam Established Pt Ophthalmoscopy, Subsequent Eye Exam & Treatment Ophthalmoscopy, Subsequent Fluorescein Angiography Fundus Photography W/ Report Treatment Of Retinal Lesion Eye Exam Established Pt Eye Exam Established Pt Ophthalmoscopy, Subsequent Eye Exam Established Pt Ophthalmoscopy, Subsequent Office Consultation Ophthalmoscopy Eye Exam & Treatment Advance Directives Directive Yes / No Effective Date File Name No Information Encounters Encounter Description Practice Location Reason(s) For Visit Diagnoses Date Provider Providers Copied on Encounter [facility], [address], [place], [place], [address], [place] tel:[phone] [facility] No Information 0200 8 Chace Mireles[address] [place], [address], [place]. tel:[phone] [facility], [address], [place], [place], [address], [place] tel:[phone] [facility] No Information Aug-2 5-200 8 Chace Mireles[address] [place], [address], [place]. tel:[phone] [facility], [address], [place], [place], [address], [place] tel:[phone] [facility] No Information Jaank-3 0-200 8 [address] [place], [address], [place]. tel:[phone] [facility], [address], [place], [place], [address], [place] tel:[phone] [facility] No Information Janak-1 6-200 8 Chace M[address]. [address] [place], [facility], [place]. tel:[phone] [facility], [address], [place], [place], [address], [place] tel:[phone] [facility] No Information Janak-1 2-200 8 [address]ace [address]. [address] [place], [facility], [place]. tel:[phone] [facility], [address], [place], [place], [address], [place] tel:[phone] [facility] No Information Janak-0 5-200 8 [address] [place], [address], [place]. tel:[phone] Referring Provider: Chi Leija, [address] [place], [address]. tel:[phone] [facility], [address], [place], [place], [address], [place] tel:[phone] [facility] [place] No Information Janak-0 3-200 8 Ita Chou. [address], [place], [place], [facility], [place]. tel:[phone] [facility], [address], [place], [place], [address], [place] tel:[phone] [facility] No Information Oct-200 8 [address] [place], [facility], [place]. tel:[phone] [facility], [address], [place], [place], [address], [place] tel:[phone] [facility] No Information 8 Chace [address]. [address] [place], [facility], [place]. tel:[phone] Referring Provider: Chi Leija, [address] [place], [facility]. tel:[phone] Office Consultation [facility], [address], [place], [place], [address], [place] tel:[phone] [facility] No Information Jun-2 200 7 [address] [place], [facility], [place]. tel:[phone] Referring Provider: Peyman [place] OD A, [address], [place], [facility]. tel:[phone] [facility], [address], [place], [place], [address], [place] tel:[phone] [facility] No Information Nov-2 9-200 7 [place] OD Peyman. [address], [place], [facility], [place]. tel:[phone] Family History Family Member Type Diagnosis Age At Onset No Information Payers Payer name Insurance type Covered constitution party ID Authoriza tion(s) Medicare [facility] [id number] Medicaid [facility] [id number] Social History Type Description Quantity Date Captured Comments Sex Male Smoking Status No Information Chief Complaint And Reason For Visit No Information Reason For Referral Reason For Referral No Information History Of Present Illness Encounter Date Complaint History Of Prese nt Illness No Information Functional Status Date Functional Assessmen t No Information Instructions Date Instruction Additional Infor mation No Information Assessments Type Assessment Date No Information Patient Care Teams Name Effective Dates (start - stop) Status Members No Information
--- OUTSIDE RECORDS SUMMARY | 2008-06-22 08:00 | XMS_ITS | Continuity of Care Document ---
Author Organization [facility] Address [address] [place] [address] Phone Care Team Providers Care Oil Dipper Name Role Phone Chi Mas Unavailable Unavailable [...] Diagnoses Date Provider Providers Copied on Encounter [facility], [address], [place], [place], [address], [place] tel:[phone] [facility] No Information 0200 8 Chace [address]les. [address] [place], [address], [place]. tel:[phone] [facility], [address], [place], [place], [address], [place] tel:[phone] [facility] No Information Aug-2 5-200 8 Chace Mireles. [address] [place], [address], [place]. tel:[phone] [facility], [address], [place], [place], [address], [place] tel:[phone] [facility] No Information Janak-3 0-200 8 Chace Mireles. [address] [place], [address], [place]. tel:[phone] [facility], [address], [place], [place], [address], [place] tel:[phone] [facility] No Information Janak-1 6-200 8 Chace M[address]les. [address] [place], [facility], [place]. tel:[phone] [facility], [address], [place], [place], [address], [place] tel:[phone] [facility] No Information Janak-1 2-200 8 Chace Mireles. [address] [place], [facility], [place]. tel:[phone] [facility], [address], [place], [place], [address], [place] tel:[phone] [facility] No Information Janak-0 5-200 8 Chace M[address]les. [address] [place], [address], [place]. tel:[phone] Referring Provider: Chi Leija, [address] [place], [address]. tel:[phone] [facility], [address], [place], [place], [address], [place] tel:[phone] [facility] [place] No Information Janak-0 3-200 8 Ita Chou. [address], [place], [facility], [place]. tel:[phone] [facility], [address], [place], [place], [address], [place] tel:[phone] [facility] No Information Oct-200 8 Chace Mireles. [address] [place], [facility], [place]. tel:[phone] [facility], [address], [place], [place], [address], [place] tel:[phone] [facility] No Information 8 Chace Mireles. [address] [place], [facility], [place]. tel:[phone] Referring Provider: Chi Leija, [address] [place], [facility]. tel:[phone] Office Consultation [facility], [address], [place], [place], [address], [place] tel:[phone] [facility] No Information Jun-2 200 7 Chace Mire[address]. [address] [place], [facility], [place]. tel:[phone] Referring Provider: Peyman [place] OD A, [address], [place], [facility]. tel:[phone] [facility], [address], [place], [place], [address], [place] tel:[phone] [facility] No Information Nov-2 9-200 7 [place] OD Peyman. [address], [place], [facility], [place]. tel:[phone] Family History Family Member Type Diagnosis Age At Onset No Information Payers Payer name Insurance type Covered alliance party ID Authoriza tion(s) Medicare [facility] [id number] Medicaid [facility] [id number] Social History Type Description Quantity Date Captured [...]
--- OUTSIDE RECORDS SUMMARY | 2008-06-22 08:00 | XMS_ITS | Continuity of Care Document ---
Author Organization [facility] Address [address] [place] [address] Phone Care Team Providers Care Foreign Broadcast Specialist Name Role Phone Chi Mas Unavailable Unavailable [...] Diagnoses Date Provider Providers Copied on Encounter [facility], [address], [place], [place], [address], [place] tel:[phone] [facility] No Information 0200 8 Chace [address]ireles. [address] [place], [address], [place]. tel:[phone] [facility], [address], [place], [place], [address], [place] tel:[phone] [facility] No Information Aug-2 5-200 8 Chace [address]ireles. [address] [place], [address], [place]. tel:[phone] [facility], [address], [place], [place], [address], [place] tel:[phone] [facility] No Information Janak-3 0-200 8 Chace [address]les. [address] [place], [address], [place]. tel:[phone] [facility], [address], [place], [place], [address], [place] tel:[phone] [facility] No Information Janak-1 6-200 8 Chace Mireles. [address] [place], [facility], [place]. tel:[phone] [facility], [address], [place], [place], [address], [place] tel:[phone] [facility] No Information Janak-1 2-200 8 Chace [address]les. [address] [place], [facility], [place]. tel:[phone] [facility], [address], [place], [place], [address], [place] tel:[phone] [facility] No Information Janak-0 5-200 8 Chace [address]ireles. [address] [place], [address], [place]. tel:[phone] Referring Provider: Chi Leija, [address] [place], [address]. tel:[phone] [facility], [address], [place], [place], [address], [place] tel:[phone] [facility] Corporate [place] No Information Janak-0 3-200 8 Ita Chou. [address], [place], [facility], [place]. tel:[phone] [facility], [address], [place], [place], [address], [place] tel:[phone] [facility] No Information Oct-200 8 Chace [address]les. [address] [place], [facility], [place]. tel:[phone] [facility], [address], [place], [place], [address], [place] tel:[phone] [facility] No Information 8 Chace [address]. [address] [place], [facility], [place]. tel:[phone] Referring Provider: Chi Leija, [address] [place], [facility]. tel:[phone] Office Consultation [facility], [address], [place], [place], [address], [place] tel:[phone] [facility] No Information Jun-2 200 7 Chace [address]. [address] [place], [facility], [place]. tel:[phone] Referring Provider: Peyman [place] OD A, [address], [place], [facility]. tel:[phone] [facility], [address], [place], [place], [address], [place] tel:[phone] [facility] No Information Nov-2 9-200 7 [place] OD Peyman. [address], [place], [facility], [place]. tel:[phone] Family History Family Member Type Diagnosis Age At Onset No Information Payers Payer name Insurance type Covered republican ID Authoriza tion(s) Medicare [facility] [id number] Medicaid [facility] [id number] Social History Type Description Quantity Date Captured [...]
--- OUTSIDE RECORDS SUMMARY | 2008-06-22 08:00 | XMS_ITS | Continuity of Care Document ---
Author Organization [facility] Address [address] [place] [address] Phone Care Team Providers Care Quality Control Auditor Name Role Phone Chi Mas Unavailable Unavailable [...] Diagnoses Date Provider Providers Copied on Encounter [facility], [address], [place], [place], [address], [place] tel:[phone] [facility] No Information 0200 8 Chace [address] [place], [address], [place]. tel:[phone] [facility], [address], [place], [place], [address], [place] tel:[phone] [facility] No Information Aug-2 5-200 8 Chace [address]. [address] [place], [address], [place]. tel:[phone] [facility], [address], [place], [place], [address], [place] tel:[phone] [facility] No Information Janak-3 0-200 8 Chace [address]. [address] [place], [address], [place]. tel:[phone] [facility], [address], [place], [place], [address], [place] tel:[phone] [facility] No Information Janak-1 6-200 8 Chace [address]. [address] [place], [facility], [place]. tel:[phone] [facility], [address], [place], [place], [address], [place] tel:[phone] [facility] No Information Janak-1 2-200 8 Chace [address]. [address] [place], [facility], [place]. tel:[phone] [facility], [address], [place], [place], [address], [place] tel:[phone] [facility] No Information Janak-0 5-200 8 [address]. [address] [place], [address], [place]. tel:[phone] Referring Provider: Chi Leija, [address] [place], [address]. tel:[phone] [facility], [address], [place], [place], [address], [place] tel:[phone] [facility] [place] No Information Janak-0 3-200 8 Ita Chou. [address], [place], [facility], [place]. tel:[phone] [facility], [address], [place], [place], [address], [place] tel:[phone] [facility] No Information Oct-200 8 Chace [address]. [address] [place], [facility], [place]. tel:[phone] [facility], [address], [place], [place], [address], [place] tel:[phone] [facility] No Information 8 Chace [address]. [address] [place], [facility], [place]. tel:[phone] Referring Provider: Chi Leija, [address] [place], [facility]. tel:[phone] Office Consultation [facility], [address], [place], [place], [address], [place] tel:[phone] [facility] No Information Jun-2 200 7 Ch[address]. [address] [place], [facility], [place]. tel:[phone] Referring Provider: Peyman [place] OD A, [address], [place], [facility]. tel:[phone] [facility], [address], [place], [place], [address], [place] tel:[phone] [facility] No Information Nov-2 9-200 7 [place] OD Peyman. [address], [place], [facility], [place]. tel:[phone] Family History Family Member Type Diagnosis Age At Onset No Information Payers Payer name Insurance type Covered democrat ID Authoriza tion(s) Medicare [facility] [id number] Medicaid [facility] [id number] Social History Type Description Quantity Date Captured [...]
[2025-06-26 15:33] LABS: Hematocrit 42.7 % (37.0-46.0); Hemoglobin 14.4 g/dL (12.4-15.3); Immature Granulocyte Percent A 0.1 % (0.0-0.0); Lymphocytes Absolute Auto 2.08 K/mm3 (1.10-4.50); Mean Corpuscular HGB Conc 33.7 g/dL (32-36); Mean Corpuscular Hemoglobin 32.6 pg (27.0-31.0); Mean Corpuscular Volume 96.6 fL (78.0-102.0); Nucleated Red Blood Cells Absolute Auto 0.00 K/mm3 (0.00-0.00); Nucleated Red Blood Cells Perc 0.0 % (0-0.0); Platelet Count Result 182 K/mm3 (150-420); Red Blood Count 4.42 M/mm3 (4.70-6.10); White Blood Count 6.8 K/mm3 (4.8-10.8)
[2025-06-26 15:51] LABS: Iron 79 ug/dL (49-181)
[2025-06-26 15:52] LABS: Alanine Aminotransferase 40 U/L (6-50); Albumin Level 4.4 g/dL (3.5-5.1); Alkaline Phosphatase 64 U/L (38-126); Anion Gap 7 mmol/L (4-12); Aspartate Amino Transferase 41 U/L (17-59); Blood Urea Nitrogen 21 mg/dL (9-20); Calcium 9.2 mg/dL (8.4-10.2); Carbon Dioxide 29 mmol/L (22-30); Chloride 106 mmol/L (98-107); Estimated Glomerular Filt Rate > 60; Glucose 124 mg/dL (65-110); Magnesium 2.2 mg/dL (1.6-2.3); Osmolality Calculated 298 mOsm/kg (285-295); Potassium 4.4 mmol/L (3.4-5.0); Sodium 142 mmol/L (137-145); Total Protein 7.0 g/dL (6.3-8.2)
[2025-06-26 16:01] LABS: Percent Iron Saturation 32 % (20-50)
[2025-06-26 16:09] LABS: Free T4 Free Thyroxine 1.11 ng/dL (0.78-2.19)
[2025-06-26 16:23] LABS: Thyroid Stimulating Hormone 0.596 uIU/mL (0.465-4.680)
[2025-06-26 16:27] LABS: Ferritin 90.90 ng/mL (11.1-264)
[2025-06-26 16:42] LABS: Vitamin B12 876.0 pg/mL (239-931)
--- OUTSIDE RECORDS SUMMARY | 2025-06-26 19:47 | XMS_ITS | Clinical Summary ---
Author Organization [facility] Address [address] [place] [address] Care Team Providers Care Devulcanizer Operator Name Role Phone Bobby Shepherd MD Primary Care Provider [phone] Social History Tobacco Use Types Packs/Day Years [...] Annual Medicare Wellness Visit 2022 COVID-19 Vaccine (1 - 2024-2 6 season) 2025 Influenza Adult (#1) 2025 RSV Immunization or 60+ Years (1 - 1-dose 75+ series) 2032 Hepatitis A Vaccines Aged Out No long er eligible based on patient's age to complete this topic Meningococcal B Vaccine Aged Out No l onger eligible based on patient's age to complete this topic Meningococcal Vaccine Aged Out No meghann leonides eligible based on patient's age to complete this topic RSV Immunizations Under 20 Months Aged Out No longer eligible based on patient's age to complete this topic Insurance MEDICARE Care Teams Devulcanizer Operator Relationship Specialty Start Date End Date Bobby Shepherd MD [address] [place], [place] [id number] PCP - General FAMILY PRACTICE 04/11/21
--- OUTSIDE RECORDS SUMMARY | 2025-06-26 19:47 | XMS_ITS | Clinical Summary ---
Author Organization [facility] [employer] Address [address] [place] [address] Care Team Providers Care Manager Print Name Role Phone Bobby Shepherd MD Primary Care Provider [phone] Source Comments [facility] [employer],non-owned Affiliates and Associated Physician Practices is amultiple site organization consisting of ambulatory clinics and hospital sitesin [place], [place], [place] and [place]. This disclosure is being madepursuant to the Care Everywhere program and may not contain all information available regarding this patient. Last updated 18.[facility] [employer] Social History Tobacco Use Types Packs/Day Years Used Date Smoking Tobacco: Never Assessed Sex and Gender Information Value Date Recorded Sex Assigned at Not on file Legal Sex Male 6:01 AM CURRICULUM AND ASSESSMENT DIRECTOR Gender Identity Not on file Sexual Orientation [...] 12/31/2007 ZOSTER VACCINE (1 of 2) 12/31/2007 DEPRESSION SCREENING 08/13/2024 MEDICARE AWV CALENDAR YEAR 2024 COVID-19 VACCINE (1 - 2024-2 6 season) 2025 INFLUENZA VACCINE (#1) 2025 Respiratory Syncytial Virus (RSV) Vaccine Pt: [...] complete this topic Insurance [address] [place] [address] MEDICARE MEDICAID - OUT OF STATE [facility] MANAGED MEDICARE [facility] MEDICAID [place] SELF PAY NO INSURANCE Member Subscriber Plan / Payer (Ef fective for All Dates) Name:Avery Jurado Sr Member ID:Not on file Relation to Subscriber:Not on file Name:AVERY JURADO SR Subscriber ID:Not on file (Home) Address: [facility] [address] [place] [address] Payer ID:Not on file Group ID:Not on file Type:Self Pay Address: [place], [place] [facility] MANAGED MEDICARE ADV Care Teams Manager Print Relationship Specialty Start Date End Date Bobby Shepherd MD [address] [place] [address] PCP - General 09/17/19
--- OUTSIDE RECORDS SUMMARY | 2025-06-26 19:47 | XMS_ITS | Encounter Summary ---
Author Organization [facility] Address [address] [place] [address] Care Team Providers Care Explosives Truck Driver Name Role Phone Bobby Shepherd MD Primary Care Provider [phone] Encounter Details Date Type Department Care Team (Late st Contact Info) Description 09/17/2019 Lab Requisition [facility] DermPath Lab [address] [place] [id number] Bobby Shepherd MD [address] [place] [address] Social History Tobacco Use Types Packs/Day Years Used Date Smoking Tobacco: Never Assessed Sex and Gender Information Value Date Recorded Sex Assigned at Not on file Legal Sex Male 6:01 AM CHANGE PERSON Gender Identity Not on file Sexual Orientation Not on file documented as of this encounter Plan of Treatment Not on file documented as of this encounter Procedures Procedure Name Priority Date/Time Associated Diagnosis Comments DERMATOPATHOLOGY Routine 09/16/2019 12:0 0 AM CHANGE PERSON documented in this encounter Results * DERMATOPATHOLOGY (09/16/2019 12:00 AM CHANGE PERSON) Case Report Dermatopathology Report Case: [id number] Authorizing Provider: Bobby Shepherd MD Collected: 09/16/2019 12:00 AM Ordering Location: [facility] Derm[facility] Lab Received: 09/17/2019 01:23 PM Pathologist: Phillip Godinez MD Specimen: Skin, left abdomen 0 5:01 PM CHANGE PERSON DERMATOPATHOLOGY LABORATORY Final Diagnosis Specimen A. SKIN, left abdomen: BENIGN VERRUCOUS KERATOSIS WITH OVERLYING CHANGES OF PRURIGO NODULARIS (L82.1) NOT PRESENT AT SAMPLED MARGIN 0 5:01 PM CHANGE PERSON DERMATOPATHOLOGY LABORATORY at [address] [facility] Clinical History Changing lesion. Check margins. 0 5:01 PM [facility] Gross Description Specimen A: Received is one formalin filled container labeled with the patients name and designated left abdomen. The specimen consists of a [id number] excision of skin. The margin is inked green. The specimen is bisected lengthwise and submitted in 1 cassette. Jar 0. 0 5:01 PM [facility] Microscopic Description Specimen A. SKIN, [...] margin of the specimen. 0 5:01 PM [facility] Disclaimer An external and internal positive and negative controls are appropriate for the histochemical, immunohistochemical and immunofluorescence stain(s) in this case (if any), except where stated explicitly. The performance characteristics of the stain(s) cited in this report were developed and its performance characteristic determined by the Dermatopathology Laboratory at [facility], directed by Dr. Sarah Godinez. These tests need not be, and therefore are not, approved by the [place] Food and Drug Administration. The tests are used for clinical purposes. Billing Codes Specimen Charges Stain Charges 96195 1 0 5:01 PM [facility] Embedded Images 0 5:01 PM [facility] Pathology/Cytolog y TISSUE SPECIMEN FROM SKIN / Unknown 09/16/2019 09/17/2019 1:23 PM [facility] us Bobbykavitha Shepherd MD LAB - PATHOLOGY/CYTOLOGY ALEXISE ALISHA Final Result DERMATOPATHOLOGY LABORATORY [facility] - Department of Dermatology [address] [place] [address], 5th Floor Lab [address] [phone] documented in this encounter Visit Diagnoses Not on filedocumented in this encounter Care Teams Explosives Truck Driver Relationship Specialty Start Date End Date Bobby Shepherd MD [address] [place] [address] PCP - General 09/17/19 documented as of this encounter
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
--- OUTSIDE RECORDS SUMMARY | 2025-06-26 19:47 | XMS_ITS | Clinical Summary ---
Author Organization [facility] Address [address] [place] [phone] Care Team Providers Care Roving Court Reporter Name Role Phone Bobby Shepherd MD Primary Care Provider [phone] Kwabena Yost MD Unavailable [phone] Jesus Roque MD Unavailable [phone] Allergies Active Allergy Reactions Criticality Noted Date Comments Aspirin Stomach upset,Nausea & Vomiting Low 05/28/2023 Nsaids (Non-Steroidal Anti-Inflammatory Drug) Nausea & Vomiting Low 05/28/2023 Vit E-Nonoxynol 9-Aloe Vera Rash Medium 02/12/2025 Medications oxyCODONE (ROXICODONE) 15 mg immediate release tabletIndications :Pain Take 1 tablet (15 mg total) by mouth 3 (three) times a day 3 Active lisinopriL (PRINIVIL,ZESTRIL ) 20 mg [...] (100 mg total) by mouth nightly Active solifenacin (VESIcare) 10 mg tabletIndications :Bladder [...] 1 tablet by mouth every morning Active Airsupra 90-80 mcg/actuation HFA aerosol inhaler INHALE 2 PUFFS BY MOUTH 6 TIMES PER DAY NEEDED FOR SHORTNESS OF BREATH 5 Active Breztri Aerosphere 160-9-4.8 mcg/actuation inhaler Inhale 2 puffs 2 (two) times a day 5 Active dutasteride (AVODART) 0.5 mg capsule Take 1 capsule (0.5 mg total) by mouth daily Active metoprolol XL (TOPROL-XL) 25 mg extended release tablet Take 1 tablet (25 mg total) by mouth daily 5 Active polyethylene glycol (MIRALAX) 17 gram/dose bulk powder 5 Active tadalafiL (CIALIS) 5 mg tablet Take by mouth 5 Active Gemtesa 75 mg tablet 4 Active varenicline tartrate (CHANTIX) 1 mg tablet Take 1 tablet (1 mg total) by mouth 2 (two) times a day 5 Active Relistor 150 mg tablet Take 1 tablet by mouth daily 5 Active albuterol HFA (PROVENTIL HFA,VENTOLIN HFA,PROAIR HFA) 90 mcg/actuation inhalerIndication s:Acute Asthma Attack Inhale 2 puffs every 6 (six) hours as needed 3 025 Discontin ued(Alter zully therapy) Active Problems Problem Noted Date Diagnosed Date Grade II hemorrhoids 02/12/2025 Chronic idiopathic constipation 11/27/2023 AIN III (anal intraepithelial neoplasia III) Encounters Date Type Department Care Team Description 05/28/2025 2:45 PM CDT Office Visit [facility] Medicine Surgery [address] [facility] 2nd [address] [place] [address] Jesus Roque MD Grade II hemorrhoids (Primary Dx); AIN III (anal intraepithelial neoplasia III) from Last 3 Months Surgical History Surgery Date Site/Laterality Comments BACK SURGERY APPENDECTOMY 08/13/1995 - 08/12/1996 WRIST SURGERY Right pins placed KNEE SURGERY Left arthroscopy HAND SURGERY Right fracture...pins in place COLONOSCOPY EXAMINATION UNDER ANESTHESIA 07/27/2023 Examination under anesthesia with excision of anal condyloma Medical History Medical History Date Comments Hypertension COPD (chronic obstructive pulmonary disease) Diverticulitis Prostate cancer (HCC) GERD (gastroesophageal reflux disease) Family History Medical History Relation Name Comments Lung cancer Father COPD Mother Anesthesia problems Neg Hx Relation Name Status Comments Father Mother Social History Tobacco Use Types Packs/Day Years Used Date Smoking Tobacco: Every Day Cigarettes 0.8 50.9 Started: 1974 Passive Smoke Exposure: Current Smokeless Tobacco: Never Tobacco Cessation:Ready to Q [...] on file Legal Sex Male 8:06 PM PERIPHERAL EQUIPMENT OPERATOR Gender Identity Male 06/19/2023 9:21 AM PERIPHERAL EQUIPMENT OPERATOR Sexual Orientation Straight 06/19/2023 9: 21 AM PERIPHERAL EQUIPMENT OPERATOR Last Filed Vital Signs Vital Sign Reading Time Taken Comments Blood Pressure 145/80 05/28/2025 2:58 PM CDT Pulse 67 05/28/2025 2:58 PM CDT Temperature 36.7 C (98.1 F) 05/28/2025 2:58 PM CDT Respiratory Rate 15 07/27/2023 8:05 AM PERIPHERAL EQUIPMENT OPERATOR Oxygen Saturation 95% 05/28/2025 2:58 PM CDT Inhaled Oxygen Concentration - - Weight 83.9 kg (185 lb) 05/28/2025 2:58 PM CDT Height 182.9 cm (6') 05/28/2025 2:58 PM CDT Body Mass Index 25.09 05/28/2025 2:58 PM CDT Plan of Treatment Health Maintenance Due [...] Fall Risk Assessment 07/27/2024 07/27/2023 Influenza Vaccine (#1) 2025 Medical Devices Implanted Type Area Application Lead Device Identifier Shelf Expiration Date Model / Serial / Lot Rt Wrist Pins Wrist Rt Hand Pins Hand Insurance [facility] MEDICARE ADVANTAGE Care Teams Roving Court Reporter Relationship Specialty Start Date End Date Bobby Shepherd MD PCP - General Family Medicine 06/08/23 Kwabena Yost MD [address] [place] [address] Referring Physician Gastroenterology 06/26/23 Jesus Roque MD [phone] [place] [address] Surgeon Colon and Rectal Surgery 06/26/23
--- OUTSIDE RECORDS SUMMARY | 2025-06-26 19:47 | XMS_ITS | Clinical Summary ---
Author Organization [facility] Address [address] Attn: Epic Prelude ADT CHRISTY GROVER [address] Care Team Providers Care Car Sweeper Name Role Phone Unavailable Primary Care Provider Unavailabl e Social History Tobacco Use Types Packs/Day Years Used Date Smoking Tobacco: Never Assessed Sex and Gender Information Value Date Recorded Sex Assigned at Not on file Legal Sex Male 4:34 AM JET WIPER Gender Identity Not on file Sexual Orientation [...] (1 of 2) 12/31/2007 INFLUENZA VACCINE (#1) 2025 RSV VACCINE (60+ or ) (1 - 1-dose 75+ series) 2032
[2025-06-30 13:42] LABS: Bilirubin,Total 0.5 mg/dL (0.2-1.3)
== END 2025-06-26 15:20 | disposition home or self-care (01) ==
LOC: CHSLAB 15:20
PROVIDERS: PCP Family Medicine; Visit Provider Family Medicine
DX: R79.89 Other specified abnormal findings of blood chemistry (principal); I47.10 Supraventricular tachycardia, unspecified; I10 Essential (primary) hypertension; E78.2 Mixed hyperlipidemia; E87.6 Hypokalemia
CPT/HCPCS: 36415; 80048; 80076; 82607; 82728; 83540; 83550; 83735; 84439; 84443; 85025